=== PATIENT | female | born 1945 | race Caucasian/White ===

== ENCOUNTER 2020-09-10 06:53 | Outpatient (REF) | payer MEDICARE, OTHER, SELFPAY ==
[2020-09-10 08:12] LABS: Cholesterol 159 mg/dL; HDL Cholesterol 70 mg/dL; LDL Cholesterol Calculated 82 mg/dl; Triglycerides 35 mg/dL
[2020-09-12 10:59] LABS: Anion Gap 11 (12-20); Blood Urea Nitrogen 14 mg/dL (9-16); Carbon Dioxide 31 mmol/L (22-29); Chloride 96 mmol/L (96-108); Estimated Glomerular Filt Rate > 60; Glucose Random 103 mg/dL (60-115); Potassium 4.3 mmol/l (3.3-5.1); Sodium 134 mmol/L (135-145)
== END 2020-09-10 06:54 | disposition home or self-care (01) ==
LOC: HO.LAB 06:53
PROVIDERS: Referring Provider Internal Medicine Cardiovascular Disease; Visit Provider Internal Medicine
DX: E03.9 Hypothyroidism, unspecified (principal); E11.9 Type 2 diabetes mellitus without complications; I10 Essential (primary) hypertension
CPT/HCPCS: 80048; 80061; 84443

== ENCOUNTER 2020-09-21 07:42 | Outpatient (REF) | payer MEDICARE, OTHER, SELFPAY | END 2020-09-21 07:43 | disposition home or self-care (01) | LOC: HO.LAB 07:42 | PROVIDERS: PCP Internal Medicine; Visit Provider Internal Medicine | DX: Z20.828 Contact with and (suspected) exposure to other viral communicable diseases (principal) | CPT/HCPCS: C9803; U0003 ==

== ENCOUNTER 2021-02-19 07:31 | Outpatient (REF) | payer MEDICARE, OTHER, SELFPAY ==
[2021-02-19 09:24] LABS: Thyroid Stimulating Hormone 1.42 uIU/mL (0.32-4.0)
== END 2021-02-19 07:32 | disposition home or self-care (01) ==
LOC: HO.LAB 07:31
PROVIDERS: PCP Internal Medicine; Visit Provider Internal Medicine
DX: E03.9 Hypothyroidism, unspecified (principal)
CPT/HCPCS: 36415; 84443

== ENCOUNTER 2021-02-25 10:14 | Outpatient (REF) | payer MEDICARE, OTHER, SELFPAY ==
--- NOTE | ~2021-02-25 | XR_ITS ---
EXAMINATION: XR KNEE, RIGHT CLINICAL INFORMATION: Right knee pain COMPARISON: None TECHNIQUE: Four views of the right knee. FINDINGS: There is generalized osteopenia. No fracture, dislocation, destructive process. No periostitis. No suprapatellar effusion. There is joint narrowing greatest lateral knee joint compartment with associated borderline genu valgus and small marginal osteophytes lateral femoral condyle and lateral tibial plateau. There is also some mild narrowing medial knee joint compartment. No visible erosive change or chondrocalcinosis. XR/XR knee RT 4V IMPRESSION: 1. Narrowing lateral knee joint compartment with borderline genu valgus. Mild narrowing medial compartment. 2. Generalized osteopenia. No erosive change or visible chondrocalcinosis. 3. No fracture, destructive process, or effusion.
== END 2021-02-25 10:15 | disposition home or self-care (01) ==
LOC: HO.HMGCX 10:14
PROVIDERS: PCP Internal Medicine; Visit Provider Hospitalist
DX: M25.561 Pain in right knee (principal)
CPT/HCPCS: 73564

== ENCOUNTER 2021-09-21 10:58 | Outpatient (REF) | payer MEDICARE, OTHER, SELFPAY ==
--- NOTE | ~2021-09-21 | XR_ITS ---
EXAMINATION: RIGHT WRIST X-RAY CLINICAL INFORMATION: Pain COMPARISON: None TECHNIQUE: 4 views of the right wrist FINDINGS: Bone alignment is normal. No fracture or dislocation is seen. Joint spaces are normal. Soft tissues are normal. XR/XR wrist RT w scaphoid IMPRESSION: Normal exam.
--- NOTE | ~2021-09-21 | XR_ITS ---
EXAMINATION: XR KNEE, RIGHT CLINICAL INFORMATION: Pain post fall COMPARISON: Previous x-ray most recent February 2021 TECHNIQUE: Four views of the right knee. FINDINGS: There may be mild valgus angulation. Bone alignment is otherwise normal. No fracture or dislocation is seen. The bones are osteopenic. There is lateral femoral tibial joint space narrowing. There is no joint effusion. XR/XR knee RT 4V IMPRESSION: Osteopenia and mild degenerative changes.
== END 2021-09-21 10:59 | disposition home or self-care (01) ==
LOC: HO.HMGCX 10:58
PROVIDERS: PCP Internal Medicine; Visit Provider Physician Assistant
DX: M25.531 Pain in right wrist (principal); M25.561 Pain in right knee
CPT/HCPCS: 73110; 73564

== ENCOUNTER 2021-12-05 07:59 | Outpatient (REF) | payer MEDICARE, OTHER, SELFPAY ==
[2021-12-05 08:45] LABS: Alanine Aminotransferase 20 U/L (0-31); Albumin Level 4.3 g/dL (3.5-5.0); Alkaline Phosphatase 71 U/L (39-117); Anion Gap 11 (12-20); Aspartate Amino Transferase 26 U/L (5-31); Blood Urea Nitrogen 13 mg/dL (9-16); Calcium 9.8 mg/dL (8.4-10.2); Carbon Dioxide 30 mmol/L (22-29); Chloride 94 mmol/L (96-108); Cholesterol 185 mg/dL; Estimated Glomerular Filt Rate > 60; Glucose Fasting 107 mg/dL (60-99); HDL Cholesterol 74 mg/dL; LDL Cholesterol Calculated 99 mg/dl; Sodium 131 mmol/L (135-145); Total Protein 6.9 g/dL (6.5-8.0); Triglycerides 61 mg/dL
[2021-12-05 09:15] LABS: Free T4 (Free Thyroxine) 1.32 ng/dL (0.71-1.85); Thyroid Stimulating Hormone 3.95 uIU/mL (0.32-4.0)
== END 2021-12-05 08:00 | disposition home or self-care (01) ==
LOC: HO.LAB 07:59
PROVIDERS: PCP Internal Medicine; Visit Provider Nurse Practitioner Family
DX: Z13.1 Encounter for screening for diabetes mellitus (principal); E78.5 Hyperlipidemia, unspecified; E03.9 Hypothyroidism, unspecified
CPT/HCPCS: 36415; 80053; 80061; 84439; 84443

== ENCOUNTER 2022-05-27 06:55 | Outpatient (REF) | payer MEDICARE, OTHER, SELFPAY ==
[2022-05-27 07:57] LABS: Alanine Aminotransferase 19 U/L (0-31); Albumin Level 4.1 g/dL (3.5-5.0); Alkaline Phosphatase 72 U/L (39-117); Anion Gap 10 (12-20); Aspartate Amino Transferase 25 U/L (5-31); Bilirubin Total 0.7 mg/dL (0.0-1.0); Blood Urea Nitrogen 15 mg/dL (9-16); Calcium 9.1 mg/dL (8.4-10.2); Carbon Dioxide 31 mmol/L (22-29); Chloride 100 mmol/L (96-108); Estimated Glomerular Filt Rate > 60; Glucose Fasting 111 mg/dL (60-99); Potassium 4.3 mmol/L (3.3-5.1); Sodium 137 mmol/L (135-145); Total Protein 6.5 g/dL (6.5-8.0)
== END 2022-05-27 06:56 | disposition home or self-care (01) ==
LOC: HO.LAB 06:55
PROVIDERS: PCP Internal Medicine; Visit Provider Internal Medicine
DX: Z00.00 Encounter for general adult medical examination without abnormal findings (principal)
CPT/HCPCS: 36415; 80053; 84443

== ENCOUNTER 2023-01-12 07:48 | Outpatient (REF) | payer MEDICARE, OTHER, SELFPAY ==
[2023-01-12 08:07] LABS: MANUAL DIFF FLAG NO
[2023-01-12 08:26] LABS: Basophils Absolute Auto 0.1 X10*3/uL (0.0-0.2); Basophils Percent Auto 0.8 % (0-2); Eosinophils Absolute Auto 0.1 X10*3/uL (0.0-0.4); Eosinophils Percent Auto 1.1 % (0-4); Hematocrit 35.5 % (37.0-47.0); Hemoglobin 12.1 g/dl (12.0-16.0); Imm Gran Abs Auto 0.03 X10*3/uL (0.00-0.03); Imm Gran Pct Auto 0.4 % (0.0-0.4); Lymphocytes Absolute Auto 3.3 X10*3/uL (1.2-4.9); Lymphocytes Percent Auto 38.8 % (20-40); Mean Corpuscular HGB Conc 34.1 g/dl (31.0-35.0); Mean Corpuscular Hemoglobin 30.5 pg (27.0-33.0); Mean Corpuscular Volume 89.4 fL (80.0-98.0); Mean Platelet Volume 9.7 fL (9.4-12.3); Monocytes Absolute Auto 0.7 X10*3/uL (0.1-1.2); Monocytes Percent Auto 8.6 % (2-11); Neutrophils Absolute Auto 4.2 x10*3/uL (2.0-8.3); Neutrophils Percent Auto 50.3 % (45-73); Platelet Count 226 X10*3/uL (160-400); Red Blood Count 3.97 X10*6/uL (4.20-5.50); Red Cell Distribution Width 12.2 % (11.0-16.0); White Blood Count 8.4 X10*3/uL (4.8-10.8)
[2023-01-12 09:05] LABS: Alanine Aminotransferase 15 U/L (0-31); Albumin Level 4.1 g/dL (3.5-5.0); Alkaline Phosphatase 71 U/L (39-117); Anion Gap 10 (12-20); Aspartate Amino Transferase 24 U/L (5-31); Bilirubin Total 1.3 mg/dL (0.0-1.0); Blood Urea Nitrogen 11 mg/dL (9-16); Calcium 9.4 mg/dL (8.4-10.2); Carbon Dioxide 32 mmol/L (22-29); Chloride 94 mmol/L (96-108); Cholesterol 170 mg/dL; Estimated Glomerular Filt Rate > 60; Glucose Fasting 94 mg/dL (60-99); HDL Cholesterol 73 mg/dL; LDL Cholesterol Calculated 86 mg/dl; Sodium 132 mmol/L (135-145); Total Protein 6.3 g/dL (6.5-8.0); Triglycerides 56 mg/dL
[2023-01-12 09:21] LABS: Thyroid Stimulating Hormone 3.78 uIU/mL (0.32-4.0)
== END 2023-01-12 07:49 | disposition home or self-care (01) ==
LOC: HO.LAB 07:48
PROVIDERS: PCP Internal Medicine; Visit Provider Internal Medicine
DX: N28.9 Disorder of kidney and ureter, unspecified (principal); E03.9 Hypothyroidism, unspecified; D64.9 Anemia, unspecified; E78.5 Hyperlipidemia, unspecified
CPT/HCPCS: 36415; 80053; 80061; 84443; 85025

== ENCOUNTER 2023-05-05 12:04 | Outpatient (REF) | payer MEDICARE, OTHER, SELFPAY | END 2023-05-05 12:05 | disposition home or self-care (01) | LOC: HO.XRAY 12:04 | PROVIDERS: PCP Internal Medicine; Visit Provider Internal Medicine | DX: M25.512 Pain in left shoulder (principal) | CPT/HCPCS: 73030 ==

== ENCOUNTER 2023-05-11 09:00 | Outpatient (RCR) | payer MEDICARE, OTHER, SELFPAY ==
[2023-04-08 10:18] VITALS: BP 223/108; PULSE 66
--- NOTE | 2023-04-08 13:32 | MHC.PT.EP ---
[facility] [place] Office [place] Office [place] Office [address] Coreen Mendoza [address] [phone] F: [phone] F: [phone] F: [phone] F: [phone] Physical Therapy Plan of Care Date of Evaluation: Date of Surgery: Diagnosis: Muscle weakness (generalized), Bilateral Leg Weakness Assessment: Beverly is a 78 year old women referred to PT for generalized LE weakness with hx significant for post-polio, HTN, A-fib, Grave's disease, and CLBP. Pt impairments include gross RLE weakness and poor muscle contraction due to post-polio, poor core stabilization, impaired gait, balance and LBP. Functional limitations include decreased endurance, decreased tolerance to physical activities including gardening, and decreased walking distance. She lives alone ans is independent with all ADLs however is noticing increased difficulty to complete them. Pt requires skilled PT to address aforementioned physical/functional impairments including pt education, energy conservation techniques, and HEP. Frequency and Duration: The patient will be seen 2x per week for 6 weeks Short Term Goals: 1. Pt will demonstrate initiation of HEP in 2 weeks. 2. 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 Pt will demonstrate an increase in muscle strength by 1 grade which will enable her to perform gardening for 5-6 hours and other chores without pain in 5 weeks. 2. Pt will be independent with HEP for symptom management and maintenance following d/c in 6 weeks. Treatment Plan: Modalities to reduce pain, spasms and effusion. Manual therapy to restore motion and function. Therapeutic exercise to improve strength and flexibility. Neuromuscular re-education for posture and balance. Therapeutic activities to return to functional activities of daily living. Electronically signed by: Leticia Jacobs PT DPT Please sign and return to therapist. Thank you for your referral.
--- NOTE | 2023-05-11 10:13 | MHC.PT.DC ---
[facility] [place] Office [place] Office [place] Office [address] Coreen Mendoza [address] [phone] F: [phone] F: [phone] F: [phone] F: [phone] Physical Therapy Discharge Report Diagnosis: Muscle weakness (generalized), Bilateral Leg Weakness Date of Surgery: Date of Evaluation: 04/08/23 Date of Discharge: 05/11/23 Treatments to Date: 7 Cancellations to Date: 0 No Shows to Date: Discharge Status: Independent with HEP Discharge Summary: Beverly has completed 7 PT visits and is independent with HEP. She has not noticed much improvement with PT therefore plan of care not extended further. Beverly was in agreement with the plan. She was advised however to continue with HEP to maintain her strength and ROM. Electronically signed by: Leticia Jacobs PT DPT Please sign and return to therapist. Thank you for your referral.
== END 2023-05-11 10:14 | disposition home or self-care (01) ==
LOC: HO.PT 09:00
PROVIDERS: PCP Internal Medicine; Visit Provider Internal Medicine
DX: M62.81 Muscle weakness (generalized) (principal)
CPT/HCPCS: 97110; 97112; 97161; 97530

== ENCOUNTER 2023-06-30 10:51 | Outpatient (AMB) | payer MEDICARE, SELFPAY ==
--- NOTE | 2023-06-30 10:57 | A.OFFVIS_ITS ---
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 The patient states that she fell directly onto her left shoulder approximately 1 year ago in her sister's bathroom. Since that time she has gotten progressively worse in spite of continued non operative treatments. She states that she has difficulty lifting her left hand above shoulder height. She has done physical therapy exercises which aggravated her pain. She has also tried Tylenol and anti-inflammatory medicines which gave her minimal relief. The patient has had cortisone injections in the past which gave her only temporary relief. Allergies No Known Allergies Allergy (Verified 06/30/23 11:00) Medication List - Last Reconciled 06/30/23 by Johny Hayes MD acebutolol 200 mg PO BID aspirin (Adult Aspirin Regimen) 81 mg PO DAILY atorvastatin 5 mg (1/2 x 10 mg) PO DAILY cholecalciferol (vitamin D3) 25 mcg PO DAILY hydrochlorothiazide 25 mg (2 x 12.5 mg) PO DAILY latanoprost 0.005% 1 drp ophthalmic (eye) BEDTIME levothyroxine 62.5 mcg (2.5 x 25 mcg) PO DAILY lisinopril 40 mg PO DAILY oxycodone 5 mg PO Q8H PRN tramadol 50 mg PO Q6H PRN PFSH Medical History Atrial fibrillation Right knee pain Somatic dysfunction of right sacroiliac joint Surgical History H/O total hysterectomy History of colonoscopy History of surgery Family History Father CAD (coronary artery disease) Mother CAD (coronary artery disease) Social History Housing: House Alcohol intake: current Alcohol intake frequency: 0-2 drinks per day Alcohol type: beer and wine Patient Tobacco Use Status: Never used Tobacco e-Cigarette/Vaping Use: Never Used Second Hand Smoke Exposure: No service: No Current occupational status: retired Cognitive needs: No Hearing needs: No Vision needs: No Physical Exam Vital Signs: BMI result Body Mass Index 20.8 Const Other: Well-nourished well-developed very friendly female awake alert and oriented x3 in no acute distress Extrem Other: Bilateral upper extremity examination shows good capillary refill, no skin lesions noted, normal sensation light touch Left shoulder examination shows decreased active range of motion but full passive range of motion when compared to her right shoulder, 4/5 strength with supraspinatus testing, positive impingement signs, tenderness over her acromioclavicular joint, no instability Results Reviewed Results Reviewed: X-rays of the patient's left shoulder show severe acromioclavicular joint narrowing, type 3 acromion, no acute bony abnormalities Assessment & Plan Assessment & Plan (1) Left shoulder pain: Code(s): M25.512 - Pain in left shoulder Plan Ms. Paulino presents with progressively worsening left shoulder pain and weakness most likely due to a full-thickness rotator cuff tear. Thus, I will send the patient for MRI of her left shoulder for further evaluation of her rotator cuff tendons. If she does have a full-thickness tear I will recommend surgical repair to optimize her future functional level. She will continue with her range of motion exercises in the meantime to prevent stiffness. I will see her back once the MRI is completed to discuss the findings and treatment options. Feel free to call me at any time should questions regarding her orthopedic management arise. Thank you very much for asking me to see this very friendly patient. I spent 22 minutes in reviewing the patient's records and imaging studies, seeing the patient and documenting in the medical record. Orders: Orders 2 MR shoulder LT wo con Today M75.100 - Unspecified rotator cuff tear or rupture of unspecified shoulder, not specified as traumatic Coding Level of Care Code New Pt Level 2 (61718) Diagnoses Left shoulder pain M25.512
[2023-06-30 11:00] VITALS: BMI 20.8
== END 2023-06-30 11:39 | disposition home or self-care (01) ==
PROVIDERS: PCP Internal Medicine; Visit Provider Orthopaedic Surgery
DX: M25.512 Pain in left shoulder (principal)
CPT/HCPCS: 99202

== ENCOUNTER → 2023-06-30 10:51 | Outpatient (BNVA) | payer MEDICARE, OTHER, SELFPAY | PROVIDERS: PCP Internal Medicine; Visit Provider Orthopaedic Surgery | DX: M25.512 Pain in left shoulder (principal) | CPT/HCPCS: 99202 ==

== ENCOUNTER 2023-07-15 10:46 | Outpatient (AMB) | payer MEDICARE, SELFPAY ==
[2023-07-15 10:48] VITALS: BP 178/80; PULSE 70; O2SAT 98; BMI 20.8
--- NOTE | 2023-07-15 10:48 | MHC.PC.OV ---
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 Lace Tearing: Not Required per policy Accompanied by: Self / Same As Patient Allergies No Known Allergies Allergy (Verified 07/15/23 10:49) Tobacco use date assessed: 05/05/23 Fall risk assessment: 1 Fall in past year Last assessed Fall Risk: 07/15/23 Dental Screening Dental Screen Date: 07/15/23 Did you have a dental visit in the last 12 months?: Yes Did you have a dental problem in the last 6 months where you did not have access to dental care?: No Was dental information given to patient?: Patient has dentist HPI Back Injury HPI Details injured lower back lifting 4 days ago [facility] Medical History Atrial fibrillation Right knee pain Somatic dysfunction of right sacroiliac joint Surgical History H/O total hysterectomy History of colonoscopy History of surgery Family History Father CAD (coronary artery disease) Mother CAD (coronary artery disease) Social History Housing: House Alcohol intake: current Alcohol intake frequency: 0-2 drinks per day Alcohol type: beer and wine Patient Tobacco Use Status: Never used Tobacco e-Cigarette/Vaping Use: Never Used Second Hand Smoke Exposure: No service: No Current occupational status: retired Cognitive needs: No Hearing needs: Yes Vision needs: Yes Questionnaire PHQ-9 Over the last 2 weeks, how often have you been bothered by any of the following problems? 2. Feeling down, depressed, or hopeless: not at all 3. Trouble falling or staying asleep, or sleeping too much: not at all 4. Feeling tired or having little energy: not at all 5. Poor appetite or overeating: not at all 6. Feeling bad about yourself - or that you are a failure or have let yourself or your family down: not at all 7. Trouble concentrating on things, such as reading the newspaper or watching television: not at all 8. Moving or speaking so slowly that other people could have noticed. Or the opposite - being so fidgety or restless that you have been moving around a lot more than usual: not at all 9. Thoughts that you would be better off or of hurting yourself in some way: not at all Depression Screening Interpretation: Negative Source: Developed by Drs. Sagar Haile, Pricilla Hatfield, Silviano Bojorquez and colleagues, with an educational ena from [employer]. Thrive Questionnaire Date Thrive assessed: 01/09/23 AUDIT C Alcohol Use Questionnaire (AUDIT-C) 1. How often do you have a drink containing alcohol?: 4 or more times a week 2. How many drinks containing alcohol do you have on a typical day when you are drinking?: 1 or 2 3. How often do you have six or more drinks on one occasion?: Never Total Score: 4 Score Reviewed/Action Taken: Yes VENANCIO-7 AMB Questionnaire VENANCIO-7 Date VENANCIO - 7 assessed: 01/09/23 Source: Developed by Drs. Sagar Haile, Pricilla Hatfield, Silviano Bojorquez and colleagues, with an educational ena from [employer]. Review of Systems Const Denies chills, Denies headache(s) and Denies weight loss ENT Denies headache(s) Card Denies chest pain, Denies syncope, Denies irregular heart rhythm and Denies dyspnea Resp Denies chest congestion, Denies cough and Denies dyspnea GI Denies abdominal pain, Denies change in stool character, Denies nausea and Denies vomiting Musc Denies deformity and Denies joint swelling Neuro Denies syncope and Denies headache(s) Physical exam (Primary Care) Vital Signs: Last Vital Signs Pulse 70 07/15/23 10:48 BP 178/80 H 07/15/23 10:48 Pulse Ox 98 07/15/23 10:48 Oxygen Delivery Method Room Air 07/15/23 10:48 BMI result Body Mass Index 20.8 Tobacco/Smoking Status: Tobacco use Status Tobacco use date assessed 05/05/23 07/15/23 10:55 Patient Tobacco Use Status Never used Tobacco 07/15/23 10:55 e-Cigarette/Vaping Use Never Used 07/15/23 10:55 Depression Screening Interpretation: Negative Thrive Assessment: Date of Thrive Assessment Date Thrive assessed 01/09/23 07/15/23 10:55 Const General: cooperative and healthy appearing Resp Effort & Inspection: normal respiratory effort Auscultation: clear to auscultation bilaterally Cardio Jugular venous distension: no JVD Palpation: normal PMI Rate: regular rate Rhythm: regular rhythm Neuro Other: normal Extrem General: Yes normal to inspection and Yes no pedal edema Assessment and Plan Assessment & Plan (1) Low back pain: Code(s): M54.50 - Low back pain, unspecified Plan: xr Orders: Orders XR lumbar spine 2-3V Today M54.9 - Dorsalgia, unspecified Comprehensive [place]. Panel Fast Today N28.9 - Disorder of kidney and ureter, unspecified Lipid Panel Today E78.5 - Hyperlipidemia, unspecified Thyroid Stimulating Hormone Today E03.9 - Hypothyroidism, unspecified Complete Blood Count Auto Diff Today D64.9 - Anemia, unspecified Coding Level of Care Code Est Pt Level 3 (44748) Diagnoses Low back pain M54.50
== END 2023-07-15 11:11 | disposition home or self-care (01) ==
PROVIDERS: PCP Internal Medicine; Visit Provider Internal Medicine
DX: M54.50 Low back pain, unspecified (principal)
CPT/HCPCS: 99213

== ENCOUNTER 2023-07-15 11:20 | Outpatient (REF) | payer MEDICARE, OTHER, SELFPAY ==
--- NOTE | ~2023-07-15 | XR_ITS ---
EXAMINATION: XR LUMBOSACRAL SPINE CLINICAL INFORMATION: Dorsalgia COMPARISON: January 2014. TECHNIQUE: Three views of the lumbosacral spine. FINDINGS: There is a mild compression deformity at L1, new since the examination of 2013, though this is of uncertain age. There are small endplate spondylitic changes. Degenerative disc space narrowing unchanged at L5-S1 but increased at L2-3 since the prior evaluation. There is some straightening of the normal lordosis which can be seen with spasm. Multilevel facet arthrosis noted. XR/XR lumbar spine 2-3V IMPRESSION: 1. Mild compression deformity at L1, new since the examination of 2013, though of uncertain age. 2. Degenerative disc space narrowing L5-S1 appears stable, with similar changes at L2-3 increased since the previous evaluation. 3. Lumbar spasm. 4. Facet arthrosis.
== END 2023-07-15 11:21 | disposition home or self-care (01) ==
LOC: HO.XRAY 11:20
PROVIDERS: PCP Internal Medicine; Visit Provider Internal Medicine
DX: M54.9 Dorsalgia, unspecified (principal)
CPT/HCPCS: 72100

== ENCOUNTER 2023-07-20 14:07 | Outpatient (AMB) | payer MEDICARE, SELFPAY ==
[2023-07-20 14:08] VITALS: PULSE 68; O2SAT 99; BMI 21.2
--- NOTE | 2023-07-20 14:08 | MHC.PC.OV ---
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 Accompanied by: Self / Same As Patient Allergies No Known Allergies Allergy (Verified 07/20/23 14:09) Medication List - Last Reconciled 07/21/23 by Paco Jordan MD acebutolol 200 mg PO BID aspirin (Adult Aspirin Regimen) 81 mg PO DAILY atorvastatin 5 mg (1/2 x 10 mg) PO DAILY cholecalciferol (vitamin D3) 25 mcg PO DAILY hydrochlorothiazide 25 mg (2 x 12.5 mg) PO DAILY latanoprost 0.005% 1 drp ophthalmic (eye) BEDTIME levothyroxine 62.5 mcg (2.5 x 25 mcg) PO DAILY lisinopril 40 mg PO DAILY oxycodone 5 mg PO Q8H PRN tramadol 50 mg PO Q6H PRN Tobacco use date assessed: 05/05/23 Fall risk assessment: No Falls in past year Last assessed Fall Risk: 07/20/23 Dental Screening Dental Screen Date: 07/20/23 Did you have a dental visit in the last 12 months?: Yes Did you have a dental problem in the last 6 months where you did not have access to dental care?: No Was dental information given to patient?: Patient has dentist HPI Back pain HPI Details has a L1 compression frcture with pain PFSH Medical History Atrial fibrillation Somatic dysfunction of right sacroiliac joint Right knee pain Surgical History History of colonoscopy History of surgery H/O total hysterectomy Family History Father CAD (coronary artery disease) Mother CAD (coronary artery disease) Social History Housing: House Alcohol intake: current Alcohol intake frequency: 0-2 drinks per day Alcohol type: beer and wine Patient Tobacco Use Status: Never used Tobacco e-Cigarette/Vaping Use: Never Used Second Hand Smoke Exposure: No service: No Current occupational status: retired Cognitive needs: No Hearing needs: Yes Vision needs: Yes Questionnaire PHQ-9 Over the last 2 weeks, how often have you been bothered by any of the following problems? 2. Feeling down, depressed, or hopeless: not at all 3. Trouble falling or staying asleep, or sleeping too much: not at all 4. Feeling tired or having little energy: not at all 5. Poor appetite or overeating: not at all 6. Feeling bad about yourself - or that you are a failure or have let yourself or your family down: not at all 7. Trouble concentrating on things, such as reading the newspaper or watching television: not at all 8. Moving or speaking so slowly that other people could have noticed. Or the opposite - being so fidgety or restless that you have been moving around a lot more than usual: not at all 9. Thoughts that you would be better off or of hurting yourself in some way: not at all Depression Screening Interpretation: Negative Source: Developed by Drs. Sagar Haile, Pricilla Hatfield, Silviano Bojorquez and colleagues, with an educational ena from [employer]. Thrive Questionnaire Date Thrive assessed: 01/09/23 AUDIT C Alcohol Use Questionnaire (AUDIT-C) 1. How often do you have a drink containing alcohol?: 4 or more times a week 2. How many drinks containing alcohol do you have on a typical day when you are drinking?: 1 or 2 3. How often do you have six or more drinks on one occasion?: Never Total Score: 4 Score Reviewed/Action Taken: Yes VENANCIO-7 AMB Questionnaire VENANCIO-7 Date VENANCIO - 7 assessed: 01/09/23 Source: Developed by Drs. Sagar Haile, Pricilla Hatfield, Silviano Bojorquez and colleagues, with an educational ena from [employer]. Review of Systems Const Denies chills, Denies headache(s) and Denies weight loss ENT Denies headache(s) Card Denies chest pain, Denies syncope, Denies irregular heart rhythm and Denies dyspnea Resp Denies chest congestion, Denies cough and Denies dyspnea GI Denies abdominal pain, Denies change in stool character, Denies nausea and Denies vomiting Musc Denies deformity and Denies joint swelling Neuro Denies syncope and Denies headache(s) Physical exam (Primary Care) Vital Signs: Last Vital Signs Pulse 68 07/20/23 14:08 Pulse Ox 99 07/20/23 14:08 Oxygen Delivery Method Room Air 07/20/23 14:08 BMI result Body Mass Index 21.2 Tobacco/Smoking Status: Tobacco use Status Tobacco use date assessed 05/05/23 07/20/23 14:12 Patient Tobacco Use Status Never used Tobacco 07/20/23 14:12 e-Cigarette/Vaping Use Never Used 07/20/23 14:12 Depression Screening Interpretation: Negative Thrive Assessment: Date of Thrive Assessment Date Thrive assessed 01/09/23 07/20/23 14:12 Const General: cooperative, comfortable, no acute distress and alert Neck Neck: Yes no lymphadenopathy Thyroid: Thyroid normal Resp Effort & Inspection: normal respiratory effort Auscultation: clear to auscultation bilaterally Percussion: percussion normal Cardio Jugular venous distension: no JVD Palpation: normal PMI Rate: regular rate Rhythm: regular rhythm Heart sounds: S1 normal heart sound present and S2 normal heart sound present GI Inspection: Yes normal to inspection Palpation (GI): No hepatosplenomegaly present Skin General skin exam: no rashes or lesions noted Extrem General: Yes no clubbing, cyanosis or edema Assessment and Plan Assessment & Plan (1) Lumbar compression fracture: Code(s): S32.000A - Wedge compression fracture of unspecified lumbar vertebra, initial encounter for closed fracture Plan: ref spine surgeon; bone dens Orders: Referrals Neuro Spine Referral S32.000A - Wedge compression fracture of unspecified lumbar vertebra, initial encounter for closed fracture Coding Level of Care Code Est Pt Level 3 (43681) Diagnoses Lumbar compression fracture S32.000A
== END 2023-07-20 14:25 | disposition home or self-care (01) ==
PROVIDERS: PCP Internal Medicine; Visit Provider Internal Medicine
DX: S32.000A Wedge compression fracture of unspecified lumbar vertebra, initial encounter for closed fracture (principal)
CPT/HCPCS: 99213

== ENCOUNTER 2023-07-21 08:06 | Outpatient (REF) | payer MEDICARE, OTHER, SELFPAY ==
[2023-07-21 08:21] LABS: MANUAL DIFF FLAG NO
[2023-07-21 09:00] LABS: Basophils Absolute Auto 0.1 X10*3/uL (0.0-0.2); Basophils Percent Auto 1.1 % (0-2); Eosinophils Absolute Auto 0.1 X10*3/uL (0.0-0.4); Eosinophils Percent Auto 1.4 % (0-4); Hematocrit 34.8 % (37.0-47.0); Hemoglobin 11.8 g/dl (12.0-16.0); Imm Gran Abs Auto 0.02 X10*3/uL (0.00-0.03); Imm Gran Pct Auto 0.2 % (0.0-0.4); Lymphocytes Percent Auto 36.1 % (20-40); Mean Corpuscular HGB Conc 33.9 g/dl (31.0-35.0); Mean Corpuscular Hemoglobin 29.9 pg (27.0-33.0); Mean Corpuscular Volume 88.3 fL (80.0-98.0); Mean Platelet Volume 9.4 fL (9.4-12.3); Monocytes Absolute Auto 0.8 X10*3/uL (0.1-1.2); Monocytes Percent Auto 9.7 % (2-11); Neutrophils Absolute Auto 4.3 x10*3/uL (2.0-8.3); Neutrophils Percent Auto 51.5 % (45-73); Platelet Count 238 X10*3/uL (160-400); Red Blood Count 3.94 X10*6/uL (4.20-5.50); Red Cell Distribution Width 12.5 % (11.0-16.0); White Blood Count 8.3 X10*3/uL (4.8-10.8)
[2023-07-21 09:35] LABS: Alanine Aminotransferase 11 U/L (0-31); Albumin Level 3.9 g/dL (3.5-5.0); Alkaline Phosphatase 81 U/L (39-117); Anion Gap 12 (12-20); Aspartate Amino Transferase 21 U/L (5-31); Bilirubin Total 0.9 mg/dL (0.0-1.0); Blood Urea Nitrogen 12 mg/dL (9-16); Calcium 9.1 mg/dL (8.4-10.2); Carbon Dioxide 30 mmol/L (22-29); Chloride 94 mmol/L (96-108); Cholesterol 159 mg/dL (<200); Estimated Glomerular Filt Rate > 60; Glucose Fasting 98 mg/dL (60-99); HDL Cholesterol 64 mg/dL (>40); LDL Cholesterol Calculated 84 mg/dL (<100); Potassium 3.7 mmol/L (3.3-5.1); Sodium 132 mmol/L (135-145); Total Protein 6.6 g/dL (6.5-8.0); Triglycerides 58 mg/dL (<150)
[2023-07-21 09:51] LABS: Thyroid Stimulating Hormone 10.29 uIU/mL (0.32-4.0)
== END 2023-07-21 08:07 | disposition home or self-care (01) ==
LOC: HO.LAB 08:06
PROVIDERS: PCP Internal Medicine; Visit Provider Internal Medicine
DX: E03.9 Hypothyroidism, unspecified (principal); N28.9 Disorder of kidney and ureter, unspecified; E78.5 Hyperlipidemia, unspecified; D64.9 Anemia, unspecified
CPT/HCPCS: 36415; 80053; 80061; 84443; 85025

== ENCOUNTER 2023-08-04 10:33 | Outpatient (REF) | payer MEDICARE, OTHER, SELFPAY ==
--- NOTE | ~2023-08-04 | MR_ITS ---
EXAMINATION: MR LUMBAR SPINE WITHOUT CONTRAST CLINICAL INFORMATION: Wedge compression fracture. Further evaluate. COMPARISON: X-ray lumbar spine dated 07/15/2023. MR lumbar spine from 05/26/2015. TECHNIQUE: Multiplanar, multisequence imaging was obtained. FINDINGS: VERTEBRAL BODIES AND PARASPINAL STRUCTURES: There is a subacute superior endplate compression fracture at the L1 level demonstrating a 30% loss of vertebral body height centrally. Riyo-ln-tqriwkgv marrow edema present across the superior half of the vertebral body with mild paraspinal soft tissue inflammatory changes as well. No significant osseous retropulsion evident. No additional compression fractures are seen. Mild anterolisthesis at the L2-L3 level is slightly worsened with moderate disc space narrowing and anterior endplate spurring. Bulky anterior endplate spurring noted in the mid lumbar spine with a mild leftward lumbar spinal curvature. The paraspinal soft tissues are normal. Bilateral renal cysts noted, for which no further imaging followup is indicated. Extensive sigmoid colonic diverticulosis partially visualized. CONUS MEDULLARIS AND CAUDA EQUINE: The distal cord, conus tip, and cauda equina nerve roots are normal. SPINAL LEVELS: T12-L1: Mild disc bulge and facet arthropathy very mildly encroaching upon the central canal. Patent foramina. L1-L2: Worsened broad-based left posterolateral disc protrusion with dvcuhdxq-uv-jgqotn foraminal encroachment and new mass effect upon the exiting left L1 nerve root. Moderate facet arthropathy and thickening of the ligamentum flavum progressed with mild central canal stenosis. Mild right foraminal narrowing due to facet spurring. L2-L3: Anterolisthesis has worsened with progressed severe facet arthropathy. Unroofed disc bulge also present. Findings result in worsened severe central canal stenosis and thecal sac compression. Additional mass effect upon the L3 nerve roots in the subarticular zones. Moderate left foraminal narrowing again evident. Worsened right foraminal narrowing due to osseous spurring and posterolateral bulging disc with mass effect upon the right L2 nerve root. L3-L4: Worsened diffuse disc bulge and klqzztgl-er-qtpybb facet arthropathy with progressed moderate central canal stenosis and thecal sac distortion. Broad-based right posterolateral disc protrusion has worsened with further significant foraminal encroachment and abutment of the exiting right L3 nerve root. Slightly worsened moderate left foraminal narrowing. L4-L5: Diffuse disc bulge and progressed severe facet arthropathy with thickening of ligamentum flavum resulting in severe central canal stenosis and thecal sac compression. Mass effect upon the left L5 nerve root in the narrowed lateral recess. Moderate bilateral foraminal narrowing with bulging disc abutting the exiting L4 nerve roots. L5-S1: Broad-based central disc protrusion has worsened with distortion of the ventral thecal sac and increased mass effect upon the S1 nerve roots in the lateral recesses. Hypertrophic facet arthropathy and moderate central canal stenosis. Worsened severe left foraminal narrowing due to bulging disc and osseous spurring impressing upon the exiting left L5 nerve root. MR/MR lumbar spine wo con IMPRESSION: 1. Subacute superior endplate compression fracture at the L1 level with a 30% loss of vertebral body height centrally. No significant osseous retropulsion. Mild paraspinal soft tissue inflammatory changes. 2. Worsened multilevel lumbar spondylosis with progressed severe central canal stenosis at the L2-L3 and L4-L5 levels. Moderate central canal stenosis at the L3-L4 level. Worsened broad-based left posterolateral disc protrusion at L1-L2 with significant left foraminal encroachment and mass effect upon the left L1 nerve root. 3. Worsened broad-based right posterolateral disc protrusion at the L3-L4 level with further significant foraminal encroachment and abutment of the right L3 nerve root. 4. Worsened broad-based central disc protrusion at L5-S1 with increased mass effect upon both S1 nerve roots in the lateral recesses. Moderate central canal stenosis. Worsened severe left foraminal narrowing with mass effect upon the left L5 nerve root. 5. Sigmoid colonic diverticulosis.
== END 2023-08-04 10:34 | disposition home or self-care (01) ==
LOC: HO.MRI 10:33
PROVIDERS: PCP Internal Medicine; Visit Provider Internal Medicine
DX: S32.000A Wedge compression fracture of unspecified lumbar vertebra, initial encounter for closed fracture (principal)
CPT/HCPCS: 72148

== ENCOUNTER 2023-08-25 12:40 | Outpatient (AMB) | payer MEDICARE, SELFPAY ==
--- NOTE | 2023-08-25 13:13 | HO.SPINEOV ---
Intake Intake Visit Reasons: Wedge compression fracture Intake Note: Ms. Paulino is here today due to a compression fx. MRI done @ [facility]. Design Engineering Specialist Required: No Allergies No Known Allergies Allergy (Verified 07/20/23 14:09) Assessment & Plan Assessment & Plan (1) Lumbar compression fracture: Code(s): S32.000A - Wedge compression fracture of unspecified lumbar vertebra, initial encounter for closed fracture Plan Dear colleague Thank you for referring Beverly Paulino to the office today with a chief complaint of resolving back pain. HPI: This 78-year-old female developed an acute compression fracture on July 12, 2023. She was moving a couch and felt a sudden punch in the lower back followed by severe pain across the lumbar region. A standing x-ray showed a mild L1 compression fracture confirmed with an MRI of the lumbar spine. Fortunately, the symptoms have mostly resolved as expected. No numbness or new weakness. She does have residual weakness from polio. She was diagnosed with osteopenia in the . PMH: Polio, multiple orthopedic procedures, hysterectomy, osteopenia. Medications: As a brittle, lisinopril, aspirin, Xalatan Allergies: NKDA Social history: Nonsmoker Physical Exam: Pleasant female. She is able to come out of a chair without difficulties. No pain on axial loading. She walks with a limp due to right leg weakness. Radiological Studies: MRI done at [facility] shows an L1 compression fracture with less than 30% height loss. A standing x-ray shows again the L1 compression fracture with no deformity. Impression/Plan: This 78-year-old female developed an acute L1 compression fracture that displays routine healing. No further treatment is required. Thank you for allowing me to participate in your patients care. total time spent was 40 minutes in counseling ,coordination of plan, personal review of imaging, surgical decision making and subsequent plan Rick Vitale MD, PhD Spine Fellowship Trained Neurosurgeon Director, [facility] Coding Level of Care Code New Pt Level 3 (48303) Diagnoses Lumbar compression fracture S32.000A
== END 2023-08-25 13:33 | disposition home or self-care (01) ==
PROVIDERS: PCP Internal Medicine; Referring Provider Internal Medicine; Visit Provider Neurological Surgery
DX: S32.000A Wedge compression fracture of unspecified lumbar vertebra, initial encounter for closed fracture (principal)
CPT/HCPCS: 99203

== ENCOUNTER → 2023-08-25 12:40 | Outpatient (BNVA) | payer MEDICARE, OTHER, SELFPAY | PROVIDERS: PCP Internal Medicine; Referring Provider Internal Medicine; Visit Provider Neurological Surgery ==

== ENCOUNTER 2023-09-09 10:08 | Outpatient (REF) | payer MEDICARE, SELFPAY ==
--- NOTE | ~2023-09-09 | MM_ITS ---
EXAMINATION: BONE DENSITOMETRY CLINICAL INDICATION: Osteopenia. COMPARISON: This is the patient's baseline examination. TECHNIQUE: Using a Lookout DXA System (software version: 13.1) manufactured by [employer], dual-energy x-ray absorptiometry was performed of the lumbar spine and left hip. The images are of good technical quality. Summary results are attached. FINDINGS: LEFT FEMUR, NECK: BMD 0.597 g/cm2, Z-score -0.8, T-score -3.2, osteoporosis. LEFT FEMUR, TOTAL: BMD 0.620 g/cm2, Z-score -0.9, T-score -3.1, osteoporosis. AP SPINE L1-L4: BMD 1.006 g/cm2, Z-score 0.9, T-score -1.4, osteopenia. IDENTIFIED RISK FACTORS: Early menopause, recurrent falls, secondary osteoporosis, thiazide, history of fracture (adult). HISTORY OF FRACTURE: Spine, other. MEDICATIONS: Vitamin D. MM/XR DEXA axial skeleton IMPRESSION: 1. DIAGNOSIS: Severe osteoporosis based on the lowest T-score value of -3.2 in the femur neck and history of fracture of spine applying World Health Organization criteria. 2. 10-YEAR FRACTURE RISK PREDICTION, FRAX: According to the guidelines, FRAX calculation should only be performed on patients in the osteopenia bone density category. Therefore, FRAX was not performed on this patient. 3. Treatment Recommendations: NOF guidelines recommend consideration for treatment in postmenopausal women and men age 50 and older presenting with the following: -A hip or vertebral (clinical or morphometric) fracture. -T-score less than or equal to -2.5 at the femoral neck or spine after appropriate evaluation to exclude secondary causes. -Low bone mass at the hip or spine and a 10-year fracture probability by FRAX of greater than or equal to 3% for hip fracture or greater than or equal to 20% for major osteoporotic fracture based on the [place] adapted WHO algorithm. 4. Other Recommendations: All treatment decisions require clinical judgment and consideration of individual patient factors, including patient preferences, comorbidities, previous drug use, risk factors not captured in the FRAX model (e.g. frailty, falls, vitamin D deficiency, increased bone turnover, interval significant decline in bone density) and possible under or overestimation of fracture risk by FRAX. Additional medical evaluation for secondary cause of low bone mineral density may be appropriate. FUTURE SCAN RECOMMENDATION: People with diagnosed cases of osteoporosis or at high risk for fracture should have regular bone mineral density tests. For patients eligible for Medicare, routine testing is allowed once every 2 years. The testing frequency can be increased to one year for patients who have rapidly progressing disease, those who are receiving or discontinuing medical therapy to restore bone mass, or have additional risk factors.
== END 2023-09-09 10:09 | disposition home or self-care (01) ==
LOC: HO.MAMMO 10:08
PROVIDERS: PCP Internal Medicine; Visit Provider Internal Medicine
DX: Z13.820 Encounter for screening for osteoporosis (principal); M85.80 Other specified disorders of bone density and structure, unspecified site; Z78.0 Asymptomatic menopausal state
CPT/HCPCS: 77080

== ENCOUNTER 2024-05-09 08:34 | Outpatient (AMB) | payer MEDICARE, SELFPAY ==
[2024-05-09 08:36] VITALS: BP 160/80; PULSE 65; O2SAT 99; BMI 20.8
--- NOTE | 2024-05-09 08:36 | A.OFFPC_ITS ---
Vital Signs 05/09/24 08:36 Height 5 ft 1 in Weight 110 lb BMI 20.8 BP 160/80 H Blood Pressure Location Lt brachial Position Sitting Pulse 65 Pulse Source Pulse Oximeter Pulse Oximetry (%) 99 Oxygen Delivery Method Room Air Intake Visit Reasons: Regular check up Retail Sales Specialist Required: No Percussion Instructor: Not Required per policy Accompanied by: Self / Same As Patient Allergies No Known Allergies Allergy (Verified 05/09/24 08:36) Medication List - Last Reconciled 05/10/24 by Paco Jordan MD acebutolol 200 mg PO BID aspirin (Adult Aspirin Regimen) 81 mg PO DAILY atorvastatin 5 mg (1/2 x 10 mg) PO DAILY cholecalciferol (vitamin D3) 25 mcg PO DAILY latanoprost 0.005% 1 drp ophthalmic (eye) BEDTIME levothyroxine 100 mcg PO DAILY losartan 100 mg PO DAILY oxycodone 5 mg PO Q8H PRN spironolactone 25 mg PO DAILY tramadol 50 mg PO Q6H PRN Tobacco use date assessed: 05/09/24 Fall risk assessment: No Falls in past year Last assessed Fall Risk: 05/09/24 Dental Screening Dental Screen Date: 05/09/24 Did you have a dental visit in the last 12 months?: Yes Did you have a dental problem in the last 6 months where you did not have access to dental care?: No Was dental information given to patient?: Patient has dentist HPI Regular check up HPI Details hypothyroidism on rx; doing well and compliant [facility] Medical History Atrial fibrillation Somatic dysfunction of right sacroiliac joint Right knee pain Surgical History History of colonoscopy History of surgery H/O total hysterectomy Family History Father CAD (coronary artery disease) Mother CAD (coronary artery disease) Social History Housing: House Alcohol intake: current Alcohol intake frequency: 0-2 drinks per day Alcohol type: beer and wine Patient Tobacco Use Status: Never used Tobacco e-Cigarette/Vaping Use: Never Used Second Hand Smoke Exposure: No service: No Current occupational status: retired Cognitive needs: No Hearing needs: Yes Vision needs: Yes Questionnaire PHQ-9 Over the last 2 weeks, how often have you been bothered by any of the following problems? 1. Little interest or pleasure in doing things: not at all 2. Feeling down, depressed, or hopeless: not at all 3. Trouble falling or staying asleep, or sleeping too much: not at all 4. Feeling tired or having little energy: not at all 5. Poor appetite or overeating: not at all 6. Feeling bad about yourself - or that you are a failure or have let yourself or your family down: not at all 7. Trouble concentrating on things, such as reading the newspaper or watching television: not at all 8. Moving or speaking so slowly that other people could have noticed. Or the opposite - being so fidgety or restless that you have been moving around a lot more than usual: not at all 9. Thoughts that you would be better off or of hurting yourself in some way: not at all Total score: 0 Depression Screening Interpretation: Negative Depression Screening Done: Yes Source: Developed by Drs. Sagar Haile, Pricilla Hatfield, Silviano Bojorquez and colleagues, with an educational ena from [employer]. Thrive Questionnaire Date Thrive assessed: 05/09/24 I am a: Patient What is your living situation today?: I have a steady place to live Within the past 12 months, did the food you bought not last and you didn't have the money to get more?: Never true Within the past 12 months, did you worry whether your food would run out before you got money to buy more?: Never true Do you have trouble paying for medicines?: No Do you have trouble getting transportation to medical appointments?: No Do you have trouble paying your heating and electricity bill?: No Do you have trouble taking care of your child, family member or friend?: No Do you have trouble with day-to-day activities such as bathing, preparing meals, shopping, managing finances, etc.?: No Are you currently unemployed and looking for a job?: No Are you interested in more education?: No Please select the resources that you would like help with: None THRIVE Score: 0 AUDIT C Alcohol Use Questionnaire (AUDIT-C) 1. How often do you have a drink containing alcohol?: 4 or more times a week 2. How many drinks containing alcohol do you have on a typical day when you are drinking?: 1 or 2 3. How often do you have six or more drinks on one occasion?: Never Total Score: 4 Score Reviewed/Action Taken: Yes VENANCIO-7 AMB Questionnaire VENANCIO-7 Date VENANCIO - 7 assessed: 05/09/24 Feeling nervous, anxious, or on edge: 0 = Not at all Not being able to stop or control worryin = Not at all Worrying too much about different things: 0 = Not at all Trouble relaxin = Not at all Being so restless that it is hard to sit still: 0 = Not at all Becoming easily annoyed or irritable: 0 = Not at all Feeling afraid as if something awful might happen: 0 = Not at all Total VENANCIO-7 score (0-4 normal; 5-9 mild; 10-14 moderate; 15-21 severe): 0 Source: Developed by Drs. Sagar Haile, Pricilla Hatfield, Silviano Bojorquez and colleagues, with an educational ena from [employer]. Review of Systems Const Denies chills, Denies headache(s) and Denies weight loss ENT Denies headache(s) Card Denies chest pain, Denies syncope, Denies irregular heart rhythm and Denies dyspnea Resp Denies chest congestion, Denies cough and Denies dyspnea GI Denies abdominal pain, Denies change in stool character, Denies nausea and Denies vomiting Musc Denies deformity and Denies joint swelling Neuro Denies syncope and Denies headache(s) Physical exam (Primary Care) Vital Signs: Last Vital Signs Pulse 65 05/09/24 08:36 BP 160/80 H 05/09/24 08:36 Pulse Ox 99 05/09/24 08:36 Oxygen Delivery Method Room Air 05/09/24 08:36 BMI result Body Mass Index 20.8 Tobacco/Smoking Status: Tobacco use Status Tobacco use date assessed 05/09/24 05/09/24 08:37 Patient Tobacco Use Status Never used Tobacco 05/09/24 08:37 e-Cigarette/Vaping Use Never Used 05/09/24 08:37 PHQ-9: PHQ-9 Score PHQ-9: Total score 0 05/09/24 08:52 Depression Screening Interpretation: Negative Thrive Assessment: Date of Thrive Assessment Date Thrive assessed 05/09/24 05/09/24 08:37 Const General: cooperative, comfortable, no acute distress and alert Neck Neck: Yes no lymphadenopathy Thyroid: Thyroid normal Resp Effort & Inspection: normal respiratory effort Auscultation: clear to auscultation bilaterally Percussion: percussion normal Cardio Jugular venous distension: no JVD Palpation: normal PMI Rate: regular rate Rhythm: regular rhythm Heart sounds: S1 normal heart sound present and S2 normal heart sound present GI Inspection: Yes normal to inspection Palpation (GI): No hepatosplenomegaly present Skin General skin exam: no rashes or lesions noted Extrem General: Yes no clubbing, cyanosis or edema Assessment and Plan Assessment & Plan (1) Hypothyroidism: Code(s): E03.9 - Hypothyroidism, unspecified Plan: stable; same rx Orders: Orders Lipid Panel 05/09/24 Z13.220 - Encounter for screening for lipoid disorders Complete Blood Count Auto Diff 05/09/24 Z13.0 - Encounter for screening for diseases of the blood and blood-forming organs and certain disorders involving the immune mechanism Comprehensive [place]. Panel Fast 05/09/24 Z13.9 - Encounter for screening, unspecified Thyroid Stimulating Hormone 05/09/24 Z13.29 - Encounter for screening for other suspected endocrine disorder Coding Level of Care Code Est Pt Level 3 (01685) Diagnoses Hypothyroidism E03.9
== END 2024-05-09 08:59 | disposition home or self-care (01) ==
PROVIDERS: PCP Internal Medicine; Visit Provider Internal Medicine
DX: E03.9 Hypothyroidism, unspecified (principal)
CPT/HCPCS: 99214

== ENCOUNTER 2024-05-11 07:20 | Outpatient (REF) | payer MEDICARE, OTHER, SELFPAY ==
[2024-05-11 07:35] LABS: MANUAL DIFF FLAG NO
[2024-05-11 08:30] LABS: Basophils Absolute Auto 0.1 X10*3/uL (0.0-0.2); Basophils Percent Auto 0.8 % (0-2); Eosinophils Absolute Auto 0.2 X10*3/uL (0.0-0.4); Eosinophils Percent Auto 1.7 % (0-4); Hematocrit 33.1 % (37.0-47.0); Hemoglobin 11.2 g/dl (12.0-16.0); Imm Gran Abs Auto 0.02 X10*3/uL (0.00-0.03); Imm Gran Pct Auto 0.2 % (0.0-0.4); Lymphocytes Absolute Auto 4.4 X10*3/uL (1.2-4.9); Lymphocytes Percent Auto 49.4 % (20-40); Mean Corpuscular HGB Conc 33.8 g/dl (31.0-35.0); Mean Corpuscular Hemoglobin 31.5 pg (27.0-33.0); Mean Platelet Volume 10.3 fL (9.4-12.3); Monocytes Absolute Auto 0.8 X10*3/uL (0.1-1.2); Monocytes Percent Auto 8.7 % (2-11); Neutrophils Absolute Auto 3.5 x10*3/uL (2.0-8.3); Neutrophils Percent Auto 39.2 % (45-73); Platelet Count 207 X10*3/uL (160-400); Red Blood Count 3.56 X10*6/uL (4.20-5.50); Red Cell Distribution Width 12.8 % (11.0-16.0); White Blood Count 8.9 X10*3/uL (4.8-10.8)
[2024-05-11 09:19] LABS: Alanine Aminotransferase 28 U/L (0-31); Albumin Level 3.9 g/dL (3.5-5.0); Alkaline Phosphatase 79 U/L (39-117); Anion Gap 11 (12-20); Aspartate Amino Transferase 30 U/L (5-31); Bilirubin Total 0.7 mg/dL (0.0-1.0); Blood Urea Nitrogen 18 mg/dL (9-16); Calcium 9.5 mg/dL (8.4-10.2); Carbon Dioxide 25 mmol/L (22-29); Chloride 106 mmol/L (96-108); Cholesterol 142 mg/dL (<200); Estimated Glomerular Filt Rate > 60; Glucose Fasting 106 mg/dL (60-99); HDL Cholesterol 66 mg/dL (>40); LDL Cholesterol Calculated 66 mg/dL (<100); Potassium 4.4 mmol/L (3.3-5.1); Sodium 138 mmol/L (135-145); Total Protein 6.4 g/dL (6.5-8.0); Triglycerides 50 mg/dL (<150)
[2024-05-11 09:25] LABS: Thyroid Stimulating Hormone < 0.01 uIU/mL (0.32-4.0)
== END 2024-05-11 07:21 | disposition home or self-care (01) ==
LOC: HO.LAB 07:20
PROVIDERS: PCP Internal Medicine; Visit Provider Internal Medicine
DX: Z13.220 Encounter for screening for lipoid disorders (principal); Z13.0 Encounter for screening for diseases of the blood and blood-forming organs and certain disorders involving the immune mechanism; Z13.29 Encounter for screening for other suspected endocrine disorder; Z13.6 Encounter for screening for cardiovascular disorders
CPT/HCPCS: 36415; 80053; 80061; 84443; 85025

== ENCOUNTER 2024-06-14 07:54 | Outpatient (REF) | payer MEDICARE, OTHER, SELFPAY ==
--- NOTE | ~2024-06-14 | XR_ITS ---
EXAMINATION: XR CHEST CLINICAL INFORMATION: Nonspecific chest pain COMPARISON: None available. TECHNIQUE: 2 views of the chest were obtained. FINDINGS: No significant abnormality is noted involving the heart, lungs, mediastinum, bony thorax or soft tissues. XR/XR chest 2V IMPRESSION: Unremarkable examination.
== END 2024-06-14 07:55 | disposition home or self-care (01) ==
LOC: HO.XRAY 07:54
PROVIDERS: PCP Internal Medicine; Visit Provider Internal Medicine
DX: R07.9 Chest pain, unspecified (principal)
CPT/HCPCS: 71046

== ENCOUNTER 2024-12-20 10:39 | Outpatient (AMB) | payer MEDICARE, SELFPAY ==
[2024-12-20 10:51] VITALS: BP 180/90; PULSE 70; TEMP 36.3; O2SAT 96; BMI 22.0
--- NOTE | 2024-12-20 10:51 | A.OFFPC_ITS ---
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 Accompanied by: Self / Same As Patient Allergies No Known Allergies Allergy (Verified 12/20/24 10:56) Medication List - Last Reconciled 12/20/24 by Paco Jordan MD acebutolol 200 mg PO BID aspirin (Adult Aspirin Regimen) 81 mg PO DAILY atorvastatin 5 mg (1/2 x 10 mg) PO DAILY cholecalciferol (vitamin D3) 25 mcg PO DAILY latanoprost 0.005% 1 drp ophthalmic (eye) BEDTIME levothyroxine 75 mcg PO DAILY losartan 100 mg PO DAILY oxycodone 5 mg PO Q8H PRN 30 days spironolactone 25 mg PO DAILY tramadol 50 mg PO Q6H PRN Tobacco use date assessed: 12/20/24 Fall risk assessment: No Falls in past year Last assessed Fall Risk: 12/20/24 Dental Screening Dental Screen Date: 12/20/24 Did you have a dental visit in the last 12 months?: No Did you have a dental problem in the last 6 months where you did not have access to dental care?: No Was dental information given to patient?: Patient has dentist HPI thyroid med HPI Details had a recent change in her thyroid med; due for lab [facility] Medical History Atrial fibrillation Somatic dysfunction of right sacroiliac joint Right knee pain Surgical History History of colonoscopy History of surgery H/O total hysterectomy Family History Father CAD (coronary artery disease) Mother CAD (coronary artery disease) Social History Housing: House Alcohol intake: current Alcohol intake frequency: 0-2 drinks per day Alcohol type: beer and wine Patient Tobacco Use Status: Never used Tobacco e-Cigarette/Vaping Use: Never Used Second Hand Smoke Exposure: No service: No 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 1. Little interest or pleasure in doing things: not at all 2. Feeling down, depressed, or hopeless: not at all 3. Trouble falling or staying asleep, or sleeping too much: not at all 4. Feeling tired or having little energy: not at all 5. Poor appetite or overeating: not at all 6. Feeling bad about yourself - or that you are a failure or have let yourself or your family down: not at all 7. Trouble concentrating on things, such as reading the newspaper or watching television: not at all 8. Moving or speaking so slowly that other people could have noticed. Or the opposite - being so fidgety or restless that you have been moving around a lot more than usual: not at all 9. Thoughts that you would be better off or of hurting yourself in some way: not at all Total score: 0 Depression Screening Interpretation: Negative Depression Screening Done: Yes 57076 - PHQ-9 Billing: Yes Source: Developed by Drs. Sagar Haile, Pricilla Hatfield, Silviano Bojorquez and colleagues, with an educational ena from [employer]. Thrive Questionnaire Date Thrive assessed: 12/20/24 I am a: Patient What is your living situation today?: I have a steady place to live Within the past 12 months, did the food you bought not last and you didn't have the money to get more?: Never true Within the past 12 months, did you worry whether your food would run out before you got money to buy more?: Never true Do you have trouble paying for medicines?: No Do you have trouble getting transportation to medical appointments?: No Do you have trouble paying your heating and electricity bill?: No Do you have trouble taking care of your child, family member or friend?: No Do you have trouble with day-to-day activities such as bathing, preparing meals, shopping, managing finances, etc.?: No Are you currently unemployed and looking for a job?: No Are you interested in more education?: No Please select the resources that you would like help with: None Currently or been in a relationship where the following occur: No concerns reported THRIVE Score: 0 AUDIT C Alcohol Use Questionnaire (AUDIT-C) 1. How often do you have a drink containing alcohol?: 4 or more times a week 2. How many drinks containing alcohol do you have on a typical day when you are drinking?: 1 or 2 3. How often do you have six or more drinks on one occasion?: Never Total Score: 4 Score Reviewed/Action Taken: Yes VENANCIO-7 AMB Questionnaire VENANCIO-7 Date VENANCIO - 7 assessed: 12/20/24 Feeling nervous, anxious, or on edge: 0 = Not at all Not being able to stop or control worryin = Not at all Worrying too much about different things: 0 = Not at all Trouble relaxin = Not at all Being so restless that it is hard to sit still: 0 = Not at all Becoming easily annoyed or irritable: 0 = Not at all Feeling afraid as if something awful might happen: 0 = Not at all Total VENANCIO-7 score (0-4 normal; 5-9 mild; 10-14 moderate; 15-21 severe): 0 Source: Developed by Drs. Sagar Haile, Pricilla Hatfield, Silviano Bojorquez and colleagues, with an educational ena from [employer]. VENANCIO-7 Assessment Billing VENANCIO-7 Assessment Tool: VENANCIO-7 Assessment 14656 Review of Systems Const Denies chills, Denies headache(s) and Denies weight loss ENT Denies headache(s) Card Denies chest pain, Denies syncope, Denies irregular heart rhythm and Denies dyspnea Resp Denies chest congestion, Denies cough and Denies dyspnea GI Denies abdominal pain, Denies change in stool character, Denies nausea and Denies vomiting Musc Denies deformity and Denies joint swelling Neuro Denies syncope and Denies headache(s) Physical exam (Primary Care) Vital Signs: Last Vital Signs Temp 97.3 F 12/20/24 10:51 Pulse 70 12/20/24 10:51 BP 180/90 H 12/20/24 10:51 Pulse Ox 96 12/20/24 10:51 Oxygen Delivery Method Room Air 12/20/24 10:51 BMI result Body Mass Index 22.0 Tobacco/Smoking Status: Tobacco use Status Tobacco use date assessed 12/20/24 12/20/24 10:57 Patient Tobacco Use Status Never used Tobacco 12/20/24 10:57 e-Cigarette/Vaping Use Never Used 12/20/24 10:57 PHQ-9: PHQ-9 Score PHQ-9: Total score 0 12/20/24 10:57 Depression Screening Interpretation: Negative Thrive Assessment: Date of Thrive Assessment Date Thrive assessed 12/20/24 12/20/24 10:57 Currently or been in a relationship where the following occur: No concerns reported Const General: cooperative, comfortable, no acute distress and alert Neck Neck: Yes no lymphadenopathy Thyroid: Thyroid normal Resp Effort & Inspection: normal respiratory effort Auscultation: clear to auscultation bilaterally Percussion: percussion normal Cardio Jugular venous distension: no JVD Palpation: normal PMI Rate: regular rate Rhythm: regular rhythm Heart sounds: S1 normal heart sound present and S2 normal heart sound present GI Inspection: Yes normal to inspection Palpation (GI): No hepatosplenomegaly present Skin General skin exam: no rashes or lesions noted Extrem General: Yes no clubbing, cyanosis or edema Coding Level of Care Code Est Pt Level 3 (21377) Diagnoses Hypothyroidism E03.9 Additional Codes VENANCIO-7 Assessment Billing - VENANCIO-7 Assessment Tool: VENANCIO-7 Assessment 48065 ([id number]) PHQ-9 - 82177 - PHQ-9 Billing: Yes ([id number]) Assessment & Plan Assessment & Plan (1) Hypothyroidism: Code(s): E03.9 - Hypothyroidism, unspecified Category: Medical Plan: same rx recheck labs
--- OUTSIDE RECORDS SUMMARY | 2024-12-20 11:54 | XMS_ITS | Encounter Summary ---
Author Organization [facility] [employer] [facility] Address [address] [place] [address] [address] [place] [address] Care Team Providers Care Enterprise Data Architect Name Role Phone Unavailable Primary Care Provider Unavailabl e Encounter Details Date Type Department Care Team (Latest Contact Info) Description 06/12/2022 Abstract [facility] CONVERSIONS Dental, Provider, DDS Social History Tobacco Use Types Packs/Day Years Used Date Smoking Tobacco: Never Assessed Comments Unknown Sex and Gender Information Value Date Recorded Sex Assigned at Female 09/08/2022 10:20 AM EDT Legal Sex Female 10:20 AM EDT Gender Identity Female 09/08/2022 10:20 AM EDT Sexual Orientation Straight 09/08/2022 10 :20 AM EDT documented as of this encounter Plan of Treatment Upcoming Encounters Date Type Department Care Team (Late st Contact Info) Description 03/10/2025 10:00 AM EDT Office Visit [facility] [address] [place] [address] Lenore Bishop documented as of this encounter Visit Diagnoses Not on filedocumented in this encounter
--- OUTSIDE RECORDS SUMMARY | 2024-12-20 11:54 | XMS_ITS | Clinical Summary ---
Author Organization [employer] [facility] Address [address] [facility] [address] [place] [address] Care Team Providers Care Mobile Engineer Name Role Phone Unavailable Primary Care Provider Unavailabl e Allergies No known active allergies Medications acebutolol (Sectral) 200 MG capsule Take 200 mg by mouth 2 times daily. 12/04/2023 Active atorvastatin (Lipitor) 10 MG tablet Take 5 mg by mouth in the morning. 09/07/2023 Active spironolactone (Aldactone) 25 MG tablet Take 25 mg by mouth in the morning. 10/07/2023 Active lisinopril 40 MG tablet Take 40 mg by mouth in the morning. 10/19/2023 Active levothyroxine (Synthroid, Levoxyl) 100 MCG tablet Take 100 mcg by mouth in the morning. 10/19/2023 Active latanoprost (Xalatan) 0.005 % ophthalmic solution PLACE ONE DROP IN EACH EYE AT BEDTIME 11/26/2023 Active losartan (Cozaar) 25 MG tablet Take 100 mg by mouth. Active Active Problems Problem Noted Date Diagnosed Date DDD (degenerative disc disease), lumbosacral Essential hypertension 07/04/2021 Overview (10/11/2024): Primary hypertension on multiple agents. No history of renal artery stenosis. Last Assessment & Plan: I am concerned with the elevated blood pressure in the office today. Her home readings are much better but still are mostly mildly elevated. I suggest that she take a full tablet of spironolactone daily. Her potassium is well within normal limits and her renal function is normal as well. She will continue to maintain a low-sodium diet and encouraged regular exercise. Glaucoma 07/04/2021 Hyperlipidemia 07/04/2021 Overview (10/11/2024): Last Assessment & Plan: I do not have a recent lipid profile to review but she continues to eat a healthy diet, remain fairly thin and take a statin. Previous LDL was 80 range with a normal HDL. Encouraged her to continue her healthy diet and regular exercise. Hyperthyroidism 07/04/2021 Overview (10/11/2024): S/p radiation treatment on levothyroxine Paroxysmal A-fib 07/04/2021 Overview (10/11/2024): 78-year-old female with a loop recorder in 2017 that mention versus atrial fibrillation that were really short atrial runs. She had been on aspirin for this and ultimately was placed on acebutolol for control. She says she can feel them throughout the day without any clear trigger. They very short lasting less than 10 seconds. CHADSVASC score of 4 for age, female gender and hypertension. Last Assessment & Plan: Beverly continues to have occasional symptomatic atrial runs but no clear evidence of atrial fibrillation. We had a long discussion regarding pros and cons of anticoagulation. Generally, our studies suggest minimal of 6 minutes prior to considering the rhythm atrial fibrillation from the standpoint of needing anticoagulation. The acebutolol seems to be working adequately and her palpitations are minimally symptomatic such that she does not want to move up to a antiarrhythmic medication which we reviewed in regards to risks and benefits. I did suggest she continue intensify her blood pressure regimen and continue a healthy lifestyle with minimalization of alcohol. Encounters Date Type Department Care Team Description 11/07/2024 Telephone [facility]ULT [facility] [address] [place] [address] Larry Hernández 10/20/2024 2:30 PM EST Office Visit [facility] [address] [place] [address] Case Pineda DDS 10/17/2024 Telephone [facility] [address] [place] [address] Klaudia Finn DMD recement crown 10/11/2024 10:30 AM EST Office Visit [facility] ADULT [facility] [address] [place] [address] Case Pineda DDS from Last 3 Months Social History Tobacco Use Types Packs/Day Years Used Date Smoking Tobacco: Never Passive Smoke Exposure: Never Smokeless Tobacco: Never Tobacco Cessation:Counseling Given: Not Answered Alcohol Use Standard Drinks/Week Comments Yes 5 (1 standard drink = 0.6 oz pur e alcohol) Comments Unknown Sex and Gender Information Value Date Recorded Sex Assigned at Female 09/08/2022 10:20 AM EDT Legal Sex Female 10:20 AM EDT Gender Identity Female 09/08/2022 10:20 AM EDT Sexual Orientation Straight 09/08/2022 10 :20 AM EDT Last Filed Vital Signs Vital Sign Reading Time Taken Comments Blood Pressure 152/94 09/09/2024 10:23 AM EDT Pulse 60 09/09/2024 10:23 AM EDT Temperature - - Respiratory Rate - - Oxygen Saturation - - Inhaled Oxygen Concentration - - Weight - - Height - - Body Mass Index - - Plan of Treatment Upcoming Encounters Date Type Department Care Team (Late st Contact Info) Description 03/10/2025 10:00 AM EDT Office Visit [facility] [address] [place] [address] Lenore Bishop Health Maintenance Due Date Last Done Comments Dental X-Ray: Full Mouth 1945 Depression Screening 1945 Lipid Panel 1945 SDOH Screening 1947 Alcohol/Substance Use Screening 1959 Hepatitis C Screening 1965 Pneumococcal Vaccine: 50+ Years (1 of 1 - PCV) 1997 DTaP/Tdap/Td Vaccines (1 - Tdap) 10/21/2014 10/20/2014 RSV Patients and Patients Aged 60 years or older (1 - 1-dose 75+ series) 2022 Dental Oral Exam 06/08/2024 12/08/2023 Dental X-Ray: Bitewings 12/09/2024 12/08/2023 Dental Prophylaxis 03/10/2025 09/09/2024, 0 12/08/2023, 03/24/2023 Tobacco Screening 10/20/2025 10/20/2024 Zoster Vaccines Completed 11/30/2020, 08/18/2020 COVID-19 Vaccine Completed 09/21/2024, , 10/07/2021, Additional history exists Influenza Vaccine Completed 09/21/2024, , 09/23/2018 HIB Vaccines Aged Out No longer eligi ble based on patient's age to complete this topic HPV Vaccines Aged Out No longer eligi ble based on patient's age to complete this topic Hepatitis A Vaccines Aged Out No long er eligible based on patient's age to complete this topic Hepatitis B Vaccines Aged Out No long er eligible based on patient's age to complete this topic IPV Vaccines Aged Out No longer eligi ble based on patient's age to complete this topic Meningococcal Vaccine Aged Out No jonny michael eligible based on patient's age to complete this topic RSV under 20 months Aged Out No longe r eligible based on patient's age to complete this topic Rotavirus Vaccines Aged Out No longer eligible based on patient's age to complete this topic Procedures Procedure Name Priority Date/Time Associated Diagnosis Comments NO CHARGE PROCEDURE Routine 10/20/2024 2 :30 PM EST ADJUNCTIVE GENERAL SERVICES - PROFESSIONAL VISITS - CASE PRESENTATION, SUBSEQUENT TO DETAILED AND EXTENSIVE TREATMENT PLANNING Routine 10/11/2024 10:30 AM EST 15 MODB RESTORATIVE - RESIN-BASED COMPOSITE RESTORATIONS - DIRECT - RESIN-BASED COMPOSITE - FOUR OR MORE SURFACES, POSTERIOR Routine 10/11/2024 10:30 AM EST PROPHYLAXIS - ADULT Routine 09/09/2024 1 0:00 AM EDT BITEWINGS - 4 RADIOGRAPHIC IMAGES Routine 12/08/2023 11:00 AM EST PERIODIC ORAL EVALUATION - ESTABLISHED PATIENT Routine 12/08/2023 11:00 AM EST from Last 3 Months or Most Recently Relevant to Health Maintenance Insurance DENTAL - HSN FULL (MEDICAID)
--- OUTSIDE RECORDS SUMMARY | 2024-12-20 11:54 | XMS_ITS | Encounter Summary ---
Author Organization [facility] [employer] [facility] Address [address] [facility] [address]t [place] [address] Care Team Providers Care Houseperson Name Role Phone Unavailable Primary Care Provider Unavailabl e Encounter Details Date Type Department Care Team (Late Contact Info) Description 01/08/2023 Telephone [facility] ADULT D[facility] [address], [place] [phone] Jack Hatfield [address] [place], [place] [phone] Social History Tobacco Use Types Packs/Day Years Used Date Smoking Tobacco: Never Assessed Comments Unknown Sex and Gender Information Value Date Recorded Sex Assigned at Female 09/08/2022 10:20 AM EDT Legal Sex Female 10:20 AM EDT Gender Identity Female 09/08/2022 10:20 AM EDT Sexual Orientation Straight 09/08/2022 10 :20 AM EDT COVID-19 Exposure Response Date Recorded In the last 10 days, have yo u been in contact with someone who was confirmed or suspected to have Coronavirus/COVID-19? No / Unsure 01/02/2023 10:58 AM EST documented as of this encounter Plan of Treatment Upcoming Encounters Date Type Department Care Team (Late Contact Info) Description 03/10/2025 10:00 AM EDT Office Visit [facility] ADULT [facility] [address] [place] [address] Lenore Bishop documented as of this encounter Visit Diagnoses Not on filedocumented in this encounter
--- OUTSIDE RECORDS SUMMARY | 2024-12-20 11:54 | XMS_ITS | Encounter Summary ---
Author Organization [facility] Address [address] [place] [id number] Care Team Providers Care Map Mounter Name Role Phone Paco Jordan MD Primary Care Provider [phone] Reason for Visit * Reason Onset Date Comments medical records 11/22/2024 Encounter Details Date Type Department Care Team ([facility] st Contact Info) Description 11/22/2024 Telephone [facility] [address] [facility] [address] [place] [address] Steve Back MD [address] [place] [address] medical records Social History Tobacco Use Types Packs/Day Years Used Date Smoking Tobacco: Former Smokeless Tobacco: Never Alcohol Use Standard Drinks/Week Comments Yes 0 (1 standard drink = 0.6 oz pur e alcohol) Comments Unknown Sex and Gender Information Value Date Recorded Sex Assigned at Not on file Legal Sex Female 10:29 AM EST Gender Identity Not on file Sexual Orientation Not on file documented as of this encounter Progress Notes * Haven Gordillo - 11/22/2024 3:02 PM EST Medical Records Request Caller: Patients Calling from: Primary care provider Requesting provider's first & last name: Dr. Paco Jordan, please put attention Dr. Samuels as Dr. Jordan is out of the office today. Direct Phone Number or Ext: [phone] What records are being requested: labs How far back: 10/28/24 What is it for: provider review Needed by: [facility] TODAY Beverly would like a call back once these are sent, she can be reached at [phone]. documented in this encounter Plan of Treatment Not on file documented as of this encounter Visit Diagnoses Not on filedocumented in this encounter Care Teams Map Mounter Relationship Specialty Start Date End Date Paco Jordan MD [address] [facility] [address] [place] [address] PCP - General Internal Medicine 04/02/21 documented as of this encounter
--- OUTSIDE RECORDS SUMMARY | 2024-12-20 11:54 | XMS_ITS | Encounter Summary ---
Author Organization [employer] Address [address] [facility] [address] [place] [address] Care Team Providers Care Research Programmer Name Role Phone Unavailable Primary Care Provider Unavailabl e Reason for Visit * Reason Onset Date Comments recement crown 10/17/2024 Encounter Details Date Type Department Care Team ([facility] st Contact Info) Description 10/17/2024 Telephone [facility] [address] [place] [address] Klaudia Finn DMD [address] [place] [address] recement crown Social History Tobacco Use Types Packs/Day Years Used Date Smoking Tobacco: Never Passive Smoke Exposure: Never Smokeless Tobacco: Never Alcohol Use Standard Drinks/Week Comments Yes 5 (1 standard drink = 0.6 oz pur e alcohol) Comments Unknown Sex and Gender Information Value Date Recorded Sex Assigned at Female 09/08/2022 10:20 AM EDT Legal Sex Female 10:20 AM EDT Gender Identity Female 09/08/2022 10:20 AM EDT Sexual Orientation Straight 09/08/2022 10 :20 AM EDT documented as of this encounter Miscellaneous Notes * Telephone Encounter - Keila Ramirez - 10/17/2024 10:22 AM EST Patient came in September and had permanent crown from many years ago recemented. She states it felloff and it was a temp crown that was put in. It seems like it is the permanent crown with a temp fix and needs to be recemented again with evaluation for new crown. Patient coming in for recement of same crown tooth #10 DR documented in this encounter Plan of Treatment Upcoming Encounters Date Type Department Care Team (Late st Contact Info) Description 03/10/2025 10:00 AM EDT Office Visit [facility] ADULT DENT[facility] [address] [place] [address] Lenore Bishop documented as of this encounter Visit Diagnoses Not on filedocumented in this encounter
--- OUTSIDE RECORDS SUMMARY | 2024-12-20 11:54 | XMS_ITS | Clinical Summary ---
Author Organization [address] [place] [address] [place] [phone] Phone Care Team Providers Care Finisher [employer] Name Role Phone Paco Jordan MD Primary Care Provider [phone] Allergies No known active allergies Medications acebutoloL (SECTRAL) 200 mg capsule TAKE ONE CAPSULE TWICE DAILY 11/04/2022 Active atorvastatin (LIPITOR) 10 mg tablet Take 5 mg by mouth daily. (1/2 tab) Active CHOLECALCIFEROL , VITAMIN D3, ORAL Take 500 Int'l Units by mouth daily. Active levothyroxine (SYNTHROID, LEVOTHROID) 88 mcg tablet Take 1 tablet (88 mcg total) by mouth 1 (one) time each day before breakfast. Active spironolactone (ALDACTONE) 25 mg tablet Take 1 tablet (25 mg total) by mouth 1 (one) time each day. 90 tablet 3 10/28/2024 Active losartan (COZAAR) 100 mg tablet TAKE ONE TABLET EVERY DAY 30 tablet 5 11/18/2024 Active Active Problems Problem Noted Date Diagnosed Date DDD (degenerative disc disease), lumbosacral Essential hypertension 07/04/2021 Overview (09/16/2024): Primary hypertension on multiple agents. No history [...] regular exercise. Glaucoma 07/04/2021 Hyperlipidemia 07/04/2021 Overview (09/16/2024): Last Assessment & Plan: I do not have a recent lipid profile to review but she continues to eat a healthy diet, remain fairly thin and take a statin. Previous LDL was 80 range with a normal HDL. Encouraged her to continue her healthy diet and regular exercise. Hyperthyroidism 07/04/2021 Overview (09/16/2024): S/p radiation treatment on levothyroxine Paroxysmal A-fib 07/04/2021 Overview (09/16/2024): 78-year-old female with a loop recorder in [...] Encounters Date Type Department Care Team Description 11/22/2024 Telephone [facility] Cardiology [facility] [address] [place] [address] Steve Back MD medical records 11/14/2024 7:00 AM EST Ancillary Procedure [facility] Cardiology [facility] [address] [place] [address] Paroxysmal A-fib (CMS/HCC) 11/04/2024 Telephone [facility] Cardiology [facility] [address] [place] [phone] Kavya Cohn NP Results (TSH) 10/28/2024 Telephone [facility] Cardiology [facility] [address] [facility] [address] [place] [phone] Kavya Cohn NP blood pressure self measured 10/26/2024 Telephone [facility] - [facility] [address] [facility] [address] [place] [phone] Steve Back MD Med Refill (Spironolactone 25mg daily/Refill sent to pharmacy 10/28/24 (sec)/) 10/21/2024 Telephone [facility] Cardiology [facility] [address] [facility] [address] [place] [phone] Steve Back MD Care Rep; ROCT - 88082 (Ok to Book); ROCT Enrollment (Enrolling patient for 30 day ROCT) 10/20/2024 12:40 PM EST Office Visit [facility] Cardiology [facility] [address] [facility] [address] [place] [phone] Kavya Cohn NP Paroxysmal A-fib (CMS/HCC) (Primary Dx) from Last 3 Months Surgical History Surgery Date Site/Laterality Comments HYSTERECTOMY PROCEDURE: HISTORICAL HYSTERECTOMY TONSILLECTOMY PROCEDURE: HISTORICAL TONSILLECTOMY OTHER SURGICAL HISTORY PROCEDURE: HISTORY OTHER; COMMENT: radioactive I2 treatment for hyperthyroidism Medical History Medical History Date Comments Essential hypertension 07/04/2021 DX:Essent ial hypertension Hyperlipidemia 07/04/2021 DX:Hyperlipidemi a Paroxysmal A-fib (CMS/HCC) 07/04/2021 DX:Pa roxysmal A-fib ([facility]) Glaucoma 07/04/2021 DX:Glaucoma History of shingles 07/04/2021 DX:History o f shingles; COMMENT: November 2018, L arm to wrist x 3 mos. Hyperthyroidism 07/04/2021 DX:Hyperthyroidi sm; COMMENT: S/p radiation treatment on levothyroxine DDD (degenerative disc disea se), lumbosacral 07/09/2021 DX:DDD (degenerative disc di sease), lumbosacral Family History Medical History Relation Name Comments Coronary artery disease Father Other: heart disease Father Coronary artery disease Mother Kidney failure Mother at 96 Relation Name Status Comments Father Mother Social History Tobacco Use Types Packs/Day Years Used Date Smoking Tobacco: Former Smokeless Tobacco: Never Alcohol Use Standard Drinks/Week Comments Yes 0 (1 standard drink = 0.6 oz pur e alcohol) Comments Unknown Sex and Gender Information Value Date Recorded Sex Assigned at Not on file Legal Sex Female 10:29 AM EST Gender Identity Not on file Sexual Orientation Not on file Obstetrics History Last Filed Vital Signs Vital Sign Reading Time Taken Comments Blood Pressure 180/100 10/20/2024 12:45 PM EST Pulse 78 09/08/2023 9:30 AM EDT Temperature - - Respiratory Rate - - Oxygen Saturation 98% 10/20/2024 12:45 PM EST Inhaled Oxygen Concentration - - Weight 49.9 kg (110 lb) 10/20/2024 12:45 PM EST Height 154.9 cm (5' 1 ) 10/20/2024 12:45 PM EST Body Mass Index 20.78 10/20/2024 12:45 PM EST Plan of Treatment Health Maintenance Due Date Last Done Comments Pneumococcal Vaccine: 50+ Years (1 of 1 - PCV) 1997 DTaP,Tdap,and Td Vaccines (2 - Td or Tdap) 11/17/2014 10/20/2014 RSV Immunization Patients 60+ Years Old (1 - 1-dose 75+ series) 2022 Cholesterol Screening (Lipid Panel) 10/07/2022 Depression Screening 10/07/2022 Falls Risk Assessment 10/07/2022 Hepatitis C Screening 10/07/2022 Medicare Annual Wellness Visit 10/07/2022 Osteoporosis Screening (Bone Density Screening) 10/07/2022 Social Influencers of Health Screening 10/07/2022 Hypertension/CHF/CAD Annual BMP Blood Test 10/28/2025 10/28/2024, 01/21/2024 Zoster Vaccines Completed 11/30/2020, 08/18/2020 COVID-19 Vaccine [...] on patient's age to complete this topic MMR Vaccines Aged Out No longer eligi ble based on patient's age to complete this topic Meningococcal ACWY Vaccine Aged Out N o longer eligible based on patient's age to complete this topic Meningococcal B Vacine Aged Out No lo nger eligible based on patient's age to complete this topic RSV Immunization Patients Under 20 months Aged Out No longer eligible based on patient's age to complete this topic Varicella Vaccines Aged Out No longer eligible based on patient's age to complete this topic Procedures Procedure Name Priority Date/Time Associated Diagnosis Comments CARDIAC FEATHEREDGER AND REDUCER MACHINE W/ CONNECTION (MCOT) Routine 11/15/2024 6:42 AM EST Paroxysmal A-fib (CMS/HCC) TRIIODOTHYRONINE FREE Routine 10/28/2024 8:06 AM EST Paroxysmal A-fib (CMS/HCC) FREE THYROXINE WITH REFLEX TO FREE TRIIODOTHYRONINE Routine 10/28/2024 8:06 AM EST Paroxysmal A-fib (CMS/HCC) BASIC METABOLIC PANEL Routine 10/28/2024 8:06 AM EST Paroxysmal A-fib (CMS/HCC) THYROID STIMULATING HORMONE WITH REFLEX TO FREE T4 AND FREE T3 Routine 10/28/2024 8:06 AM EST Paroxysmal A-fib (CMS/HCC) MAGNESIUM Routine 10/28/2024 8:06 AM EST Paroxysmal A-fib (CMS/HCC) ECG 12-LEAD Routine 10/25/2024 8:57 AM EST Paroxysmal A-fib (CMS/HCC) from Last 3 Months Results * CARDIAC FEATHEREDGER AND REDUCER MACHINE W/ CONNECTION (MCOT) (11/15/2024 6:42 AM EST) Anatomical Region Laterality Modality Cardiac Diagnost ic Impressions 12/14/2024 10:07 AM EST Normal sinus rhythm with a rate related right bundle branch block. ??Average heart rate 65 bpm. ??Frequent premature atrial complexes with a PAC burden of 3.9% and rare premature ventricular complexes with a PVC burden of 1.1%. ??No atrial fibrillation. Narrative 12/14/2024 10:07 AM EST ?Normal sinus rhythm with frequent PACs and rare PVCs. ??No documented atrial or ventricular arrhythmias. [facility] DIAGNOSTIC TESTING DEPARTMENT [address] [facility], [id number], [place] [address] TEL: FAX: TYPE OF TEST 30 day ROCT monitor. DATES OF MONITORIN11/14/24- 12/14/24 (Monitor not worn after 12/08/24) REQUESTING PHYSICIAN: Kavya Cohn NP PRIMARY CARE PROVIDER: Paco Delgado MD INDICATION: Paroxysmal Atrial Fibrillation, Palpitations PRELIMINARY FINDINGS FROM FIRST CALL MEDICAL: 1. The predominant rhythm was sinus, sinus arrhythmia, with Intermittent BBB. 2. The average heart rate was 65 bpm, minimum heart rate was 54 bpm, maximum heart rate was 103 bpm. 3. Total VE burden: 1.1% consisting of singles. 4. Total SVE burden: 3.9% consisting of singles, couplets, triplets, with Atrial Run's & Atrial Run's with Aberrancy present. 5. There were 25 patient triggered symptomatic events. Kavya Cohn NP CV CARDIAC SERVICES PROCEDUR ES Final Result * (ABNORMAL) Thyroid stimulating hormone with reflex to free t4 and free t3 (10/28/2024 8:06 AM EST) TSH 0.05(L) 0.40 - 4.00 mcIU/mL LAB CHEMISTRY METHOD 10/28/2024 9:48 AM EST [facility] Blood Venous blood specimen / Unknown Venipuncture / Unknown 10/28/2024 8:06 AM EST 10/28/2024 9:03 AM EST Kavya Cohn MOTORCYCLE SUBASSEMBLER LAB BLOOD ORDERABLES Final R esult Performing Organization Address City/[facility]/ZIP Co de Phone Number [facility] [address] [place] [address], [place] [phone] * Free thyroxine with reflex to free triiodothyronine (10/28/2024 8:06 AM EST) Free T4 1.77 0.70 - 1.80 ng/dL LAB CHEMISTRY METHOD 10/28/2024 10:14 AM EST [facility] Blood Venous blood specimen / Unknown Venipuncture / Unknown 10/28/2024 8:06 AM EST 10/28/2024 9:03 AM EST us Kavya Cohn MOTORCYCLE SUBASSEMBLER LAB BLOOD ORDERABLES Final R esult Performing Organization Address [facility] Co de Phone Number [facility] [address] [place] [address], [place] [phone] * Triiodothyronine free (10/28/2024 8:06 AM EST) T3, Free 252 230 - 420 pcg/dL LAB CHEMISTRY METHOD 10/28/2024 10:42 AM EST [facility] Blood Venous blood specimen / Unknown Venipuncture / Unknown 10/28/2024 8:06 AM EST 10/28/2024 9:03 AM EST Kavya Cohn MOTORCYCLE SUBASSEMBLER LAB BLOOD ORDERABLES Final R esult Performing Organization Address City/[facility]/ZIP Co de Phone Number [facility] [address] [place] [address], [place] [phone] * Magnesium (10/28/2024 8:06 AM EST) Magnesium 1.9 1.9 - 2.6 mg/dL LAB CHEMISTRY METHOD 10/28/2024 9:36 AM [facility] Blood Venous blood specimen / Unknown Venipuncture / Unknown 10/28/2024 8:06 AM EST 10/28/2024 9:03 AM EST us Kavya Cohn MOTORCYCLE SUBASSEMBLER LAB BLOOD ORDERABLES Final R esult [facility] [address] [place] [address], * (ABNORMAL) Basic metabolic panel (10/28/2024 8:06 AM EST) Sodium 127(L) 133 - 145 mmol/L LAB CHEMISTRY METHOD 10/28/2024 9:36 AM [facility] Potassium 4.6 3.5 - 5.5 mmol/L LAB CHEMISTRY METHOD 10/28/2024 9:36 AM [facility] Chloride 94(L) 96 - 110 mmol/L LAB CHEMISTRY METHOD 10/28/2024 9:36 AM [facility] CO2 27 21 - 32 mmol/L LAB CHEMISTRY METHOD 10/28/2024 9:36 AM [facility] Anion Gap 6 3 - 11 LAB CHEMISTRY METHOD 10/28/2024 9:36 AM [facility] Glucose 98 70 - 100 mg/dL LAB CHEMISTRY METHOD 10/28/2024 9:36 AM [facility] BUN 13 5 - 25 mg/dL LAB CHEMISTRY METHOD 10/28/2024 9:36 AM [facility] Creatinine 0.82 0.50 - 1.10 mg/dL LAB CHEMISTRY METHOD 10/28/2024 9:36 AM [facility] eGFR 74 >=60 mL/min/1. 73m2 LAB CHEMISTRY METHOD 10/28/2024 9:36 AM [facility] Comment:Calculation based on the??Chronic Kidney Disease Epidemiology Collaboration (CKD-EPI) equation refit??without adjustment for race. BUN/Creatinine Ratio 15.9 LAB CHEMISTRY METHOD 10/28/2024 9:36 AM EST [facility] Calcium 9.5 8.5 - 10.5 mg/dL LAB CHEMISTRY METHOD 10/28/2024 9:36 AM EST [facility] Blood Venous blood specimen / Unknown Venipuncture / Unknown 10/28/2024 8:06 AM EST 10/28/2024 9:03 AM EST Kavya Cohn MOTORCYCLE SUBASSEMBLER LAB BLOOD ORDERABLES Final R esult Performing Organization Address City/[facility]/ZIP Co de Phone Number [facility]) [facility] [address] [place] [address], [place] [phone] * ECG 12 lead (10/25/2024 8:57 AM EST) Ventricular Rate ECG 59 BPM [facility] Atrial Rate 59 BPM [facility] P-R Interval 132 ms GEMUSE QRS Duration 84 ms GEMUSE Q-T Interval 414 ms GEMUSE QTc 409 ms GEMUSE P Wave [place] 85 degrees GEMUSE R [place] 61 degrees GEMUSE T [place] 131 degrees GEMUSE ECG Interpretation Sinus bradycardia with sinus arrhythmia ST and T wave abnormality, consider lateral ischemia Abnormal ECG When compared with ECG of 18-JUN-1999 03:08, T wave inversion now evident in Lateral leads Confirmed by Vesta BACK JOHN ([id number]) on 10/25/2024 9:54:15 AM G[facility] 10/20/2024 12:4 9 PM EST 10/25/2024 9:54 AM EST Kavya Cohn MOTORCYCLE SUBASSEMBLER ECG ORDERABLES Edited Resul t - Final Performing Organization Address City/State/[facility] Co de Phone Number [facility] from Last 3 Months Insurance MEDICARE Care Teams Finisher [employer] Relationship Specialty Start Date End Date Paco Jordan MD [address] [place] [address] [address] [place] [address] PCP - General Internal Medicine 04/02/21
== END 2024-12-20 11:09 | disposition home or self-care (01) ==
PROVIDERS: PCP Internal Medicine; Visit Provider Internal Medicine
DX: E03.9 Hypothyroidism, unspecified (principal)

== ENCOUNTER → 2024-12-20 10:39 | Outpatient (BNVA) | payer MEDICARE, OTHER, SELFPAY | PROVIDERS: PCP Internal Medicine; Visit Provider Internal Medicine | DX: E03.9 Hypothyroidism, unspecified (principal) | CPT/HCPCS: 96127; 99212 ==

== ENCOUNTER 2025-01-10 08:08 | Outpatient (REF) | payer MEDICARE, OTHER, SELFPAY ==
--- OUTSIDE RECORDS SUMMARY | 2025-01-10 08:22 | XMS_ITS | Encounter Summary ---
Author Organization [employer] [facility] Address [address] [place] [address] [address] [place] [address] Care Team Providers Care Chairman & Chief Executive Officer Name Role Phone Unavailable Primary Care Provider Unavailabl e Encounter Details Date Type Department Care Team (Latest Contact Info) Description 06/12/2022 Abstract [facility] CONVERSIONS Dental, Provider, DDS Social History Tobacco [...] Description 03/10/2025 10:00 AM EDT Office Visit [facility] ADULT DENTAL [address] [place] [address] Lenore Bsihop documented as of this encounter Visit Diagnoses Not on filedocumented in this encounter
--- OUTSIDE RECORDS SUMMARY | 2025-01-10 08:23 | XMS_ITS | Clinical Summary ---
Author Organization [employer] [facility] Address [address] [facility] 7t [place] [address] Care Team Providers Care Senior Risk Manager Name Role Phone Unavailable Primary Care Provider [...] Type Department Care Team Description 11/07/2024 Telephone [facility] ADULT DENTAL [address] [place] [address] Edgar Larry 10/20/2024 2:30 PM EST Office Visit [facility] ADULT DENTAL [address] [place] [address] Case Pineda DDS 10/17/2024 Telephone [facility] ADULT DENTAL [address] [place] [address] Klaudia Finn DMD recement crown from Last 3 Months Social History Tobacco [...] Upcoming Encounters Date Type Department Care Team ([facility] st Contact Info) Description 03/10/2025 10:00 AM EDT Office Visit [facility] ADULT DENTAL [address] [place] [phone] Lenore Bishop Health Maintenance Due Date Last [...] PROCEDURE Routine 10/20/2024 2 :30 PM EST PROPHYLAXIS - ADULT Routine 09/09/2024 1 0:00 AM EDT BITEWINGS - 4 RADIOGRAPHIC IMAGES Routine 12/08/2023 11:00 AM EST PERIODIC ORAL EVALUATION - ESTABLISHED PATIENT Routine 12/08/2023 11:00 AM EST from Last 3 Months or Most Recently Relevant to Health Maintenance Insurance DENTAL - HSN FULL (MEDICAID)
--- OUTSIDE RECORDS SUMMARY | 2025-01-10 08:23 | XMS_ITS | Encounter Summary ---
Author Organization [employer] [facility] Address [address] [place] [address] [address] [place] [address] Care Team Providers Care Entertainment Production Professional Name Role Phone Unavailable Primary Care Provider Unavailabl e Reason for Visit * Reason Onset Date Comments recement crown 10/17/2024 Encounter Details Date Type Department Care Team (Late Contact Info) Description 10/17/2024 Telephone [facility] ADULT DENTAL [address] [place] [address] Klaudia Finn DMD recement crown Social History Tobacco Use Types [...] Description 03/10/2025 10:00 AM EDT Office Visit [facility] ADULT DENTAL [address] [place] [address] Lenore Bishop documented as of this encounter Visit Diagnoses Not on filedocumented in this encounter
--- OUTSIDE RECORDS SUMMARY | 2025-01-10 08:24 | XMS_ITS | Clinical Summary ---
Author Organization [address] [place] [address] [place] [phone] Phone Care Team Providers Care Retail District Manager Name Role Phone Paco [place] MD Primary Care Provider [phone] Allergies No known active allergies Medications acebutoloL [...] Type Department Care Team Description 11/22/2024 Telephone [facility] Cardiology [facility] [address] [place] [address] Steve Back MD medical records 11/14/2024 7:00 AM EST Ancillary Procedure [facility] Cardiology [facility] [address] [place] [address] Paroxysmal A-fib (CMS/HCC) 11/04/2024 Telephone [facility] Cardiology [facility] [address] [place] [address] Kavya Cohn NP Results (TSH) 10/28/2024 Telephone [facility] Cardiology [facility] [address] [facility] [address] [place] [phone] Kavya Cohn NP blood pressure self measured 10/26/2024 Telephone [facility] - [facility] [address] [facility] [address] [place] [phone] Steve Back MD Med Refill (Spironolactone 25mg daily/Refill sent to pharmacy 10/28/24 (sec)/) 10/21/2024 Telephone [facility] Cardiology [facility] - [facility] [address] [facility] [address] [place] [phone] Steve Back MD Removable Prosthodontist; ROCT - [id number] (Ok to Book); ROCT Enrollment (Enrolling patient for 30 day ROCT) 10/20/2024 12:40 PM EST Office Visit [facility] Cardiology [facility] [address] [facility] [address] [place] [phone] Kavya Cohn NP Paroxysmal A-fib (CMS/HCC) (Primary Dx) from Last 3 Months Surgical History Surgery Date Site/Laterality Comments HYSTERECTOMY PROCEDURE: HISTORICAL HYSTERECTOMY TONSILLECTOMY PROCEDURE: HISTORICAL TONSILLECTOMY OTHER SURGICAL HISTORY PROCEDURE: HISTORY OTHER; COMMENT: radioactive I2 treatment for hyperthyroidism Medical History Medical History Date Comments Essential hypertension 07/04/2021 DX:Essent ial hypertension Hyperlipidemia 07/04/2021 DX:Hyperlipidemi a Paroxysmal A-fib (CMS/HCC) 07/04/2021 DX:Pa roxysmal A-fib ([facility]) Glaucoma 07/04/2021 DX:Glaucoma History of shingles 07/04/2021 [...] Years (1 of 1 - PCV) 1997 RSV Immunization Patients 60+ Years Old (1 - 1-dose 75+ series) 2022 Cholesterol Screening (Lipid Panel) 10/07/2022 Depression Screening 10/07/2022 Falls Risk Assessment 10/07/2022 Hepatitis C Screening 10/07/2022 Medicare Annual Wellness Visit 10/07/2022 Osteoporosis Screening (Bone Density Screening) 10/07/2022 Social Influencers of Health Screening 10/07/2022 DTaP,Tdap,and Td Vaccines (2 - Td or Tdap) 10/20/2024 10/20/2014 Hypertension/CHF/CAD Annual BMP Blood Test 10/28/2025 10/28/2024, [...] Name Priority Date/Time Associated Diagnosis Comments CARDIAC CLIENT SERVICES REPRESENTATIVE W/ CONNECTION (MCOT) Routine 11/15/2024 6:42 AM [...] from Last 3 Months Results * CARDIAC CLIENT SERVICES REPRESENTATIVE W/ CONNECTION (MCOT) (11/15/2024 6:42 AM EST) [...] PVCs. ??No documented atrial or ventricular arrhythmias. [facility] DIAGNOSTIC TESTING DEPARTMENT [address] [facility], [id number], [place] [address] TEL: FAX: TYPE OF TEST 30 day [...] LAB CHEMISTRY METHOD 10/28/2024 9:48 AM EST [facility] ([facility] Blood Venous blood specimen / Unknown Venipuncture / Unknown 10/28/2024 8:06 AM EST 10/28/2024 9:03 AM EST us Kavya Cohn GEAR TECHNICIAN LAB BLOOD ORDERABLES Final R esult Performing Organization Address City/[facility]/ZIP Co de Phone Number [facility] [address] [place] [address], [place] [phone] * Free thyroxine with reflex to free triiodothyronine (10/28/2024 8:06 AM EST) Free T4 1.77 0.70 - 1.80 ng/dL LAB CHEMISTRY METHOD 10/28/2024 10:14 AM EST [facility] Blood Venous blood specimen / Unknown Venipuncture / Unknown 10/28/2024 8:06 AM EST 10/28/2024 9:03 AM EST us Kavya Cohn GEAR TECHNICIAN LAB BLOOD ORDERABLES Final R esult Performing Organization Address City/[facility] Co de Phone Number [facility] [address] [place] [address], [place] [phone] * Triiodothyronine free (10/28/2024 8:06 AM EST) T3, Free 252 230 - 420 pcg/dL LAB CHEMISTRY METHOD 10/28/2024 10:42 AM EST [facility] Blood Venous blood specimen / Unknown Venipuncture / Unknown 10/28/2024 8:06 AM EST 10/28/2024 9:03 AM EST Kavya Cohn GEAR TECHNICIAN LAB BLOOD ORDERABLES Final R esult Performing Organization Address City/[facility]/ZIP Co de Phone Number [facility] [address] [place] [address], [place] [phone] * Magnesium (10/28/2024 8:06 AM EST) Magnesium 1.9 1.9 - 2.6 mg/dL LAB CHEMISTRY METHOD 10/28/2024 9:36 AM [facility] Blood Venous blood specimen / Unknown Venipuncture / Unknown 10/28/2024 8:06 AM EST 10/28/2024 9:03 AM EST us Kavya Cohn GEAR TECHNICIAN LAB BLOOD ORDERABLES Final R esult [facility] [address] [place] [address], * (ABNORMAL) Basic metabolic panel (10/28/2024 8:06 AM EST) Sodium 127(L) 133 - 145 mmol/L LAB CHEMISTRY METHOD 10/28/2024 9:36 AM [facility] Potassium 4.6 3.5 - 5.5 mmol/L LAB CHEMISTRY METHOD 10/28/2024 9:36 AM [facility] Chloride 94(L) 96 - 110 mmol/L LAB CHEMISTRY METHOD 10/28/2024 9:36 AM [facility] CO2 27 21 - 32 mmol/L LAB CHEMISTRY METHOD 10/28/2024 9:36 AM [facility] Anion Gap 6 3 - 11 LAB CHEMISTRY METHOD 10/28/2024 9:36 AM [facility] Glucose 98 70 - 100 mg/dL LAB CHEMISTRY METHOD 10/28/2024 9:36 AM [facility] BUN 13 5 - 25 mg/dL LAB CHEMISTRY METHOD 10/28/2024 9:36 AM [facility] Creatinine 0.82 0.50 - 1.10 mg/dL LAB CHEMISTRY METHOD 10/28/2024 9:36 AM [facility] eGFR 74 >=60 mL/min/1. 73m2 LAB CHEMISTRY METHOD 10/28/2024 9:36 AM [facility] Comment:Calculation based on the??Chronic Kidney Disease Epidemiology Collaboration (CKD-EPI) equation refit??without adjustment for race. BUN/Creatinine Ratio 15.9 LAB CHEMISTRY METHOD 10/28/2024 9:36 AM EST [facility] Calcium 9.5 8.5 - 10.5 mg/dL LAB CHEMISTRY METHOD 10/28/2024 9:36 AM EST [facility] Blood Venous blood specimen / Unknown Venipuncture / Unknown 10/28/2024 8:06 AM EST 10/28/2024 9:03 AM EST Kavya Cohn GEAR TECHNICIAN LAB BLOOD ORDERABLES Final R esult Performing Organization Address City/[facility]/ZIP Co de Phone Number [facility] ([facility]) [facility] [address] [place] [address], [place] [phone] * ECG 12 lead (10/25/2024 8:57 AM EST) Ventricular Rate ECG 59 BPM GEMUSE Atrial Rate 59 BPM GEMUSE P-R Interval 132 ms GEMUSE QRS Duration 84 ms GEMUSE Q-T Interval 414 ms GEMUSE QTc 409 ms GEMUSE P Wave Dalhart 85 degrees GEMUSE R Dalhart 61 degrees GEMUSE T Dalhart 131 degrees GEMUSE ECG Interpretation Sinus bradycardia with sinus arrhythmia ST and T wave abnormality, consider lateral ischemia Abnormal ECG When compared with ECG of 18-JUN-1999 03:08, T wave inversion now evident in Lateral leads Confirmed by Vesta BACK JOHN ([id number]) on 10/25/2024 9:54:15 AM GEMUSE 10/20/2024 12:4 9 PM EST 10/25/2024 9:54 AM EST Kavya Cohn GEAR TECHNICIAN ECG ORDERABLES Edited Resul t - Final Performing Organization Address City/State/[facility] Co de Phone Number GEMUSE from Last [place] [address] MEDICARE Care Teams Retail District Manager Relationship Specialty Start Date End Date Paco [place] MD [address] [place] [address] [address] [place] [address] PCP - General Internal Medicine 04/02/21
--- OUTSIDE RECORDS SUMMARY | 2025-01-10 08:24 | XMS_ITS | Encounter Summary ---
Author Organization [facility] Address [address] [place] [phone] Care Team Providers Care Strategic Partnership Manager Name Role Phone Paco [place] MD Primary Care Provider [phone] Reason for Visit * Reason Onset Date Comments medical records 11/22/2024 Encounter Details Date Type Department Care Team ([facility] st Contact Info) Description 11/22/2024 Telephone [facility] [address] [facility] [address] [place] [address] Steve Back MD [address] [place] [address] medical records Social History Tobacco Use Types [...] of this encounter Progress Notes * Haven Pintoes - 11/22/2024 3:02 PM EST Medical Records Request Caller: Patients Calling from: Primary care provider Requesting provider's first & last name: Dr. Paco [place], please put attention Dr. Samuels as Dr. [place] is out of the office today. Direct Phone Number or Ext: [phone] What records are being requested: labs How far back: 10/28/24 What is it for: provider review Needed by: [facility] Beverly would like a call back once these are sent, she can be reached at [phone]. documented in this encounter Plan of Treatment Not on file documented as of this encounter Visit Diagnoses Not on filedocumented in this encounter Care Teams Strategic Partnership Manager Relationship Specialty Start Date End Date Paco [place] MD [address] [facility] [address] [place] [address] PCP - General Internal Medicine 04/02/21 documented as of this encounter
--- OUTSIDE RECORDS SUMMARY | 2025-01-10 08:24 | XMS_ITS | Encounter Summary ---
Author Organization [facility] Address [address] [facility] [address] [place] [address] Care Team Providers Care Splicer Helper Name Role Phone Unavailable Primary Care Provider Unavailabl e Encounter Details Date Type Department Care Team (Late Contact Info) Description 01/08/2023 Telephone [facility] [address] [place], [place] [phone] Jack Hatfield [address] [place], [place] [phone] Social History Tobacco Use Types Packs/Day Years [...] Description 03/10/2025 10:00 AM EDT Office Visit [facility] [address] [place] [address] Lenore Bishop documented as of this encounter Visit Diagnoses Not on filedocumented in this encounter
[2025-01-10 09:54] LABS: Alanine Aminotransferase 29 U/L (0-31); Alkaline Phosphatase 74 U/L (39-117); Anion Gap 12 (12-20); Aspartate Amino Transferase 28 U/L (5-31); Bilirubin Total 0.7 mg/dL (0.0-1.0); Blood Urea Nitrogen 18 mg/dL (9-16); Calcium 9.5 mg/dL (8.4-10.2); Carbon Dioxide 26 mmol/L (22-29); Chloride 102 mmol/L (96-108); Estimated Glomerular Filt Rate > 60; Glucose Random 106 mg/dL (60-115); Potassium 5.1 mmol/L (3.3-5.1); Sodium 135 mmol/L (135-145)
[2025-01-10 10:10] LABS: Free T4 (Free Thyroxine) 1.41 ng/dL (0.71-1.85); Thyroid Stimulating Hormone 0.11 uIU/mL (0.32-4.0)
== END 2025-01-10 08:09 | disposition home or self-care (01) ==
LOC: HO.LAB 08:08
PROVIDERS: PCP Internal Medicine; Visit Provider Internal Medicine
DX: E03.9 Hypothyroidism, unspecified (principal)
CPT/HCPCS: 36415; 80053; 84439; 84443

== ENCOUNTER 2025-03-23 10:45 | Outpatient (AMB) | payer MEDICARE, SELFPAY ==
[2025-03-23 11:13] VITALS: BP 160/90; PULSE 68; O2SAT 96; BMI 23.1
--- NOTE | 2025-03-23 11:13 | A.OFFPC_ITS ---
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 Accompanied by: Self / Same As Patient Allergies No Known Allergies Allergy (Verified 03/23/25 11:50) Medication List - Last Reconciled 03/23/25 by Leonidas Betancourt MD acebutolol 200 mg PO BID atorvastatin 5 mg (1/2 x 10 mg) PO DAILY cholecalciferol (vitamin D3) 25 mcg PO DAILY latanoprost 0.005% 1 drp ophthalmic (eye) BEDTIME levothyroxine 75 mcg PO DAILY levothyroxine 50 mcg PO DAILY losartan 100 mg PO DAILY oxycodone 5 mg PO Q8H PRN 30 days spironolactone 25 mg PO DAILY tramadol 50 mg PO Q6H PRN Tobacco use date assessed: 03/23/25 Fall risk assessment: 1 Fall in past year Last assessed Fall Risk: 03/23/25 Dental Screening Dental Screen Date: 03/23/25 Did you have a dental visit in the last 12 months?: Yes Did you have a dental problem in the last 6 months where you did not have access to dental care?: No Was dental information given to patient?: Patient has dentist HPI CARLOS From Dr. [place] 3m f/u HPI Details Patient comes in today for her follow up visit - is transferring over from Dr. [place], who retired from the practice a couple of months ago Patient states that she feels okay States that she has white coat syndrome and that her blood pressure readings are usually much better at home than her readings at the doctor's office She has reportedly been worked up by Dr. Licona for her high blood pressure readings with ambulatory BP monitor years ago and she has been advised that all of her tests came back normal She brought in several BP readings from home today, with BP readings of 133/78, 118/71, 117/67, 120/76. 135/80, 136/78, 112/65, among others Reports that she has (+) Hx of L1 vertebral compression Fx and states that her low back pain has been mostly manageable over the years but she is presently unable to tolerate sitting for long period of time and has to get up and move around after a while to keep her lower back from tightening up completely - feels that her low back pain has gotten worse lately She denies any recent injury or trauma to her lower back She denies any headaches or dizziness Denies any chest pains, no increased shortness of breath No nausea/vomiting, no abdominal pain No change in bowel habits noted She has no follow-up labs done recently [facility] Medical History (Updated 03/25/25 @ 04:52 by Leonidas Betancourt MD) Paroxysmal atrial fibrillation Vitamin D deficiency Pure hypercholesterolemia Acquired hypothyroidism Pure hypercholesterolemia with target low density lipoprotein (LDL) cholesterol less than 130 mg/dL Essential hypertension Atrial fibrillation Somatic dysfunction of right sacroiliac joint Right knee pain Surgical History History of colonoscopy History of surgery H/O total hysterectomy Family History Father CAD (coronary artery disease) Mother CAD (coronary artery disease) Social History Housing: House Alcohol intake: current Alcohol intake frequency: 0-2 drinks per day Alcohol type: beer and wine Patient Tobacco Use Status: Never used Tobacco e-Cigarette/Vaping Use: Never Used Second Hand Smoke Exposure: No service: No 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 1. Little interest or pleasure in doing things: not at all 2. Feeling down, depressed, or hopeless: not at all 3. Trouble falling or staying asleep, or sleeping too much: not at all 4. Feeling tired or having little energy: not at all 5. Poor appetite or overeating: not at all 6. Feeling bad about yourself - or that you are a failure or have let yourself or your family down: not at all 7. Trouble concentrating on things, such as reading the newspaper or watching television: not at all 8. Moving or speaking so slowly that other people could have noticed. Or the opposite - being so fidgety or restless that you have been moving around a lot more than usual: not at all 9. Thoughts that you would be better off or of hurting yourself in some way: not at all Total score: 0 Depression Screening Interpretation: Negative Depression Screening Done: Yes 61581 - PHQ-9 Billing: Yes Source: Developed by Drs. Sagar Haile, Pricilla Hatfield, Silviano Bojorquez and colleagues, with an educational ena from [employer]. Thrive Questionnaire Date Thrive assessed: 03/23/25 I am a: Patient What is your living situation today?: I have a steady place to live Within the past 12 months, did the food you bought not last and you didn't have the money to get more?: Never true Within the past 12 months, did you worry whether your food would run out before you got money to buy more?: Never true Do you have trouble paying for medicines?: Yes Do you have trouble getting transportation to medical appointments?: No Do you have trouble paying your heating and electricity bill?: No Do you have trouble taking care of your child, family member or friend?: No Do you have trouble with day-to-day activities such as bathing, preparing meals, shopping, managing finances, etc.?: No Are you currently unemployed and looking for a job?: No Are you interested in more education?: No Please select the resources that you would like help with: None Currently or been in a relationship where the following occur: No concerns reported THRIVE Score: 0 AUDIT C Alcohol Use Questionnaire (AUDIT-C) 2. How many drinks containing alcohol do you have on a typical day when you are drinking?: 5 or 6 Total Score: 2 Score Reviewed/Action Taken: Yes VENANCIO-7 AMB Questionnaire VENANCIO-7 Date VENANCIO - 7 assessed: 03/23/25 Feeling nervous, anxious, or on edge: 0 = Not at all Not being able to stop or control worryin = Not at all Worrying too much about different things: 0 = Not at all Trouble relaxin = Not at all Being so restless that it is hard to sit still: 0 = Not at all Becoming easily annoyed or irritable: 0 = Not at all Feeling afraid as if something awful might happen: 0 = Not at all Total VENANCIO-7 score (0-4 normal; 5-9 mild; 10-14 moderate; 15-21 severe): 0 Source: Developed by Drs. Sagar Haile, Pricilla Hatfield, Silviano Bojorquez and colleagues, with an educational ena from [employer]. Review of Systems Const Denies chills, Denies fatigue, Denies fever(s) and Denies headache(s) ENT Denies dysphagia, Denies dizziness, Denies otalgia, Denies headache(s), Denies neck pain, Denies odynophagia and Denies sore throat Card Denies chest pain, Denies palpitations and Denies dyspnea Resp Denies chest congestion, Denies cough and Denies dyspnea GI Denies abdominal pain, Denies constipation, Denies dysphagia, Denies heartburn, Denies diarrhea, Denies nausea, Denies odynophagia and Denies vomiting Denies difficulty voiding, Denies nocturia, Denies dysuria and Denies urinary urgency Musc Reports back pain (over the lower back - increasing lately - see HPI) and Denies neck pain Skin/Breast Denies rash Neuro Denies dizziness and Denies headache(s) Endo Denies fatigue and Denies palpitations Bhanu/Lymph Denies easy bruising Physical exam (Primary Care) Vital Signs: Last Vital Signs Pulse 68 03/23/25 11:13 BP 160/90 H 03/23/25 11:13 Pulse Ox 96 03/23/25 11:13 Oxygen Delivery Method Room Air 03/23/25 11:13 BMI result Body Mass Index 23.1 Tobacco/Smoking Status: Tobacco use Status Tobacco use date assessed 03/23/25 03/23/25 11:16 Patient Tobacco Use Status Never used Tobacco 03/23/25 11:16 e-Cigarette/Vaping Use Never Used 03/23/25 11:16 PHQ-9: PHQ-9 Score PHQ-9: Total score 0 03/23/25 11:52 Depression Screening Interpretation: Negative Thrive Assessment: Date of Thrive Assessment Date Thrive assessed 03/23/25 03/23/25 11:16 Currently or been in a relationship where the following occur: No concerns reported Const General: no acute distress and alert HENMT Ears: TM's normal bilaterally and EAC's normal Throat: Yes posterior oropharynx normal and Yes tonsils normal (no TP congestion) Neck Neck: Yes supple and No lymphadenopathy Thyroid: Thyroid normal Resp Auscultation: clear to auscultation bilaterally, no rales and no wheezes Cardio Rate: regular rate Rhythm: regular rhythm Heart sounds: no murmurs GI Palpation (GI): Soft to palpation and nontender Auscultation: normal bowel sounds General: Yes no CVA tenderness Back/Spine/Pelvis Back: no CVA tenderness Thoracic/Lumbar Spine: lumbar spinal tenderness (increased lately) Skin Rashes: no rashes Extrem General: Yes no clubbing, cyanosis or edema Coding Level of Care Code Est Pt Level 4 (38463) Complex EM visit Add On G2211 Diagnoses Essential hypertension I10 Pure hypercholesterolemia E78.00 Paroxysmal atrial fibrillation I48.0 Acquired hypothyroidism E03.9 Compression fracture of L1 vertebra, sequela S32.010S Encounter type: sequela Lumbar vertebra fracture level: L1 Vitamin D deficiency E55.9 Additional Codes PHQ-9 - 09595 - PHQ-9 Billing: Yes ([id number]) Assessment & Plan Assessment & Plan (1) Essential hypertension: Code(s): I10 - Essential (primary) hypertension Category: Medical Plan: Reinforced low sodium diet - goal is systolic BP of 120 to 130 mm or less Patient does appear to have component of white-coat syndrome as her blood pressure goes up significantly when it is checked here in the office Her BP log brought in today reveals excellent BP control consistently whenever her BP is checked at home Continue Losartan 100 mg QD, Spironolactone 25 mg QD; she is also on Acebutolol 200 mg BID but that is more to control her heart rate and minimize recurrence of her previous symptoms of palpitations (2) Pure hypercholesterolemia: Code(s): E78.00 - Pure hypercholesterolemia, unspecified Category: Medical Plan: As she has not had any follow up labs done in a while, will have patient go and get these done ZULY Reinforced low cholesterol diet Continue Atorvastatin 5 mg QD Will recheck her labs and fasting lipids again in 3 months for follow up (3) Paroxysmal atrial fibrillation: Code(s): I48.0 - Paroxysmal atrial fibrillation Category: Medical Plan: Patient reportedly has several brief episodes of atrial fibrillation documented on loop recorder back on 2017 but has had no recurrence since She has a CHADsVasc score of 3 but as she has not had any further recurrence since 2017, she has not been on any thromboembolism prophylaxis Continue Acebutolol 200 mg BID She was on Aspirin 81 mg QD but also appears to have stopped taking it a while ago Follow up with cardiology as scheduled (4) Acquired hypothyroidism: Code(s): E03.9 - Hypothyroidism, unspecified Category: Medical Plan: Continue Levothyroxine 50 mcg QD Will recheck her TFTs in 3 months for follow up (5) Lumbar compression fracture: Code(s): S32.000A - Wedge compression fracture of unspecified lumbar vertebra, initial encounter for closed fracture Category: Medical Qualifiers: Encounter type: sequela Lumbar vertebra fracture level: L1 Qualified Code(s): S32.010S - Wedge compression fracture of first lumbar vertebra, sequela Plan: Reinforced activity and weight-lifting restrictions to avoid aggravating her low back pain Continue Tramadol 50 mg TID PRN for pain for now She reports that she has (+) L1 vertebral compression Fx and that her low back pain has been mostly manageable over the years but she is presently unable to tolerate sitting for long period of time and has to get up and move around after a while to keep her lower back from tightening up completely - feels that her low back pain has gotten worse lately As she has been seen by Dr. Vitale a while back, she would like to get a referral to see Dr. Vitale for her increasing low back pain - referral placed (6) Vitamin D deficiency: Code(s): E55.9 - Vitamin D deficiency, unspecified Category: Medical Plan: Continue Vitamin D3 2000 units QD Plan Follow up in 3 months Orders: Orders Comprehensive Met. Panel 03/23/25 E03.9 - Hypothyroidism, unspecified Complete Blood Count Auto Diff 03/23/25 D64.9 - Anemia, unspecified, E03.9 - Hypothyroidism, unspecified Free T4 (Free Thyroxine) 03/23/25 E03.9 - Hypothyroidism, unspecified Complete Blood Count Auto Diff 3 Months D64.9 - Anemia, unspecified Comprehensive [place]. Panel Fast 3 Months E78.00 - Pure hypercholesterolemia, unspecified Free T4 (Free Thyroxine) 3 Months E03.9 - Hypothyroidism, unspecified Thyroid Stimulating Hormone 3 Months E03.9 - Hypothyroidism, unspecified UA CC w/rflx Micro + Cult 3 Months R30.0 - Dysuria Thyroid Stimulating Hormone 03/23/25 E03.9 - Hypothyroidism, unspecified Lipid Panel 3 Months E78.00 - Pure hypercholesterolemia, unspecified Vitamin D 25-OH Total 3 Months E55.9 - Vitamin D deficiency, unspecified Referrals Neurosurgery Referral S32.000A - Wedge compression fracture of unspecified lumbar vertebra, initial encounter for closed fracture
--- OUTSIDE RECORDS SUMMARY | 2025-03-23 11:52 | XMS_ITS | Encounter Summary ---
Author Organization [employer] [facility] Address [address] [place] [address] 7t [place] [address] Care Team Providers Care Channel Executive Name Role Phone Unavailable Primary Care Provider Unavailabl e Encounter Details Date Type Department Care Team (Late st Contact Info) Description 01/08/2023 Telephone [facility] ADULT DENTAL [address] [place], [place] [phone] Jack Hatfield [address] [place] [address] Social History Tobacco Use Types Packs/Day Years [...] Care Team (Late st Contact Info) Description 05/05/2025 10:30 AM EDT Office Visit [facility] ADULT DENTAL [address] [place] [address] Case Pineda DDS [address] [place] [address] 09/22/2025 8:00 AM EST Office Visit [facility] ADULT DENT[facility] [address], [place] [phone] Lenore Bishop documented as of this encounter Visit Diagnoses Not on filedocumented in this encounter
--- OUTSIDE RECORDS SUMMARY | 2025-03-23 11:52 | XMS_ITS | Encounter Summary ---
Author Organization [employer] [facility] Address [address] [facility] 7t [place] [address] Care Team Providers Care Marine Drafter Name Role Phone Unavailable Primary Care Provider Unavailabl e Reason for Visit * Reason Comments Routine Cleaning Dental Exam Encounter Details Date Type Department Care Team (Late st Contact Info) Description 03/20/2025 8:00 AM EDT Office Visit [facility] ADULT DENTAL [address] [place] [address] Lenore Bishop Social History Tobacco Use Types Packs/Day Years [...] AM EDT documented as of this encounter Last Filed Vital Signs Vital Sign Reading Time Taken Comments Blood Pressure 144/86 03/20/2025 8:07 AM EDT Pulse - - Temperature - - Respiratory Rate - - Oxygen Saturation - - Inhaled Oxygen Concentration - - Weight - - Height - - Body Mass Index - - documented in this encounter Progress Notes * Lenore Bishop - 03/20/2025 8:00 AM EDT Patient ID: Beverly Paulino is a 80 y.o. female. Time Out: Timeout Date: 03/20/25, Timeout Time: 0809 Location: [facility] Tooth: Maxilla and Mandible Procedure: Exam, X-rays, and Prophylaxis Verified the above with patient, rn first assistant, and provider. Confirmed via patient's chart, intraorally and by radiographs. Process Worker: not applicable Medical Hx: Vitals: Blood pressure (!) 144/86. Medications, Med Hx reviewed with patient and updated in chart. Treatment Provided Dental procedures in this visit D1110 - PROPHYLAXIS - ADULT (Completed) Service provider: Lenore Dockery provider: Antony Ngo DMD [id number] - CASE PRESENTATION, DETAILED AND EXTENSIVE TREATMENT PLANNING (Completed) Service provider: Lenore Bishop Billfreddy provider: Antony Ngo DMD [id number] - ORAL HYGIENE INSTRUCTIONS (Completed) Service provider: Lenore Bishop Billfreddy provider: Antony Ngo DMD [id number] - BITEWINGS - 3 RADIOGRAPHIC IMAGES (Completed) Service provider: Lenore Bishop Billfreddy provider: Antony Ngo DMD [id number] - INTRAORAL - PERIAPICAL FIRST RADIOGRAPHIC IMAGE (Completed) Service provider: Lenore Bishop Billfreddy provider: Antony Ngo DMD [id number] - INTRAORAL - PERIAPICAL EACH ADDITIONAL RADIOGRAPHIC IMAGE (Completed) Service provider: Lenore Bishop Billfreddy provider: Antony Ngo DMD Instruments Used: Ultrasonic Scalers, Hand Scalers, and Prophy angle Fluoride: N/A Oral Cancer Screening: No lesions Head/Neck Exam: No Lesions Calculus: Light and Localized Plaque: Light and Generalized Stain: None Bleeding: Light and Localized Gingiva: Healthy, Perio Charting Completed, Bleeding on probing, and Recession- localized OH: Good Perio Chart: Completed Dental exam done by Dr. Finn. Oral hygiene instructions provided to patient including brushing technique and flossing. Recommendations: Altus two times daily, modified crane technique, Floss daily, Electric toothbrush, Soft bristle toothbrush, Altus Tongue, Anti-sensitivity toothpaste Recall Frequency: 6 mo NV: Restorations Hygienist: Lenore Bishop RDH * Klaudia Finn DMD - 03/20/2025 8:00 AM EDT Dental procedures in this visit D1110 - PROPHYLAXIS - ADULT (Completed) Service provider: Lenore Dockery provider: Antony Ngo DMD [id number] - CASE PRESENTATION, DETAILED AND EXTENSIVE TREATMENT PLANNING (Completed) Service provider: Lenore Bishop Billfreddy provider: Antony Ngo DMD [id number] - ORAL HYGIENE INSTRUCTIONS (Completed) Service provider: Lenore Bishop Billing provider: Antony Ngo DMD D0273 - BITEWINGS - 3 RADIOGRAPHIC IMAGES (Completed) Service provider: Lenore Bishop Billing provider: Antony Ngo DMD [id number] - INTRAORAL - PERIAPICAL FIRST RADIOGRAPHIC IMAGE (Completed) Service provider: Lenore Bishop Billing provider: Antony Ngo DMD [id number] - INTRAORAL - PERIAPICAL EACH ADDITIONAL RADIOGRAPHIC IMAGE (Completed) Service provider: Lenore Bishop Billing provider: Antony Ngo DMD D0120 - PERIODIC ORAL EVALUATION - ESTABLISHED PATIENT (Completed) Service provider: Klaudia Finn DMD Billing provider: Antony Ngo DMD Patient ID: Beverly Paulino is a 80 y.o. female. Time Out: Date: 03/20/2025 Location: [facility] Tooth: Maxilla and Mandible Procedure: Exam and X-rays Verified the above with patient, rn first assistant, and provider. Confirmed via patient's chart, intraorally and by radiographs. Process Worker: not applicable 80 y.o. year old female patient presents to clinic for a Comprehensive exam completed by Dr. Klaudia Finn DMD CONSENT FORM INITIALED & SIGNED BY THE PATIENT AND COUNTERSIGNED BY Dr. Klaudia Finn DMD Chief Complaint: I am due for an exam. NELSON LAGOON: Pain: None Duration: N/A Scale of pain from 1 - 10: N/A Aggravating factors: N/A Pain radiating: N/A Postural variation: N/A Medical history: Reviewed in EHR, pt. reports no changes in medical history Medical consult/Medical clearance: None Vital signs: BP - 144/86 Allergies: reviewed in EHR, NKDA Medications: Reviewed in EHR ASA- II Habits Bruxism: WNL Smoking: None reported Drinking: None reported Brushinx/day Flossinx/day Last dental visit: February 2025 - Dr. Pineda Cancer screening Extra-oral - No palpable lymph nodes or lymph adenopathies. No facial asymmetries. No extraoral swelling or erythematous lesions. Intraoral - Buccal mucosa, gingiva, floor and roof of the mouth, pharynx, and all surfaces of the tongue pink and normal. No erythematous lesions or intraoral swellings. Extra-oral examination TMJ Deviation - None Clicking - None Tenderness - None Facial symmetry - None Cheeks - No asymmetry Lymph nodes - No swollen lymph nodes Intraoral examination Soft tissues - [place] and Normal Palate - [place] and Normal Tongue - [place] and Normal Buccal mucosa - [place] and Normal Floor of mouth - [place] and Normal Vestibules - [place] and Normal Lips - [place] and Normal Glands - [place] and Normal Duct area - [place] and Normal Oropharynx - [place] and Normal Gingiva Color - [place] and Normal Contour - Blunted Recession - Yes, generalized Consistency - Spongy Texture - Stippled Bleeding on probing - Yes, see perio chart Oral hygiene - Poor Occlusion Overbite (mm): 2 mm Overjet (mm): 2 mm Diastema: None Right Molar Occlusion: N/A Left Molar Occlusion: N/A Right Canine Occlusion: Class I Left Canine Occlusion: Class I Midline: Coincident Anterior/Posterior crossbite: None Arches: WNL Wear Facets: WNL Radiographs Full mouth series taken on: BW and PA taken today Quality are of diagnostic value and appropriate for radiographic analysis: Yes X-ray retake: None RADIOGRAPHIC FINDINGS Radiolucency: None Thickened PDL: None Increased Lamina Dura: None Root Resorption Internal/External: None Abnormal Root formation: None Horizontal Bone Resorption: Yes, generalized Vertical Bone Resorption: Yes, generalized Other Bone Pathosis: None Periodontal exam Periodontal diagnosis: Stage II Grade B PSR or full pocket depths recorded: Perio charting performed today by hygienist Hard tissue exam Missing - 1, 13, 16, 17, 19, 29-32 Decayed - #20 D, #21 B cervical caries present Gingiva - WNL Calculus - WNL Fractured - None Mobility - None Treatment discussion Findings, risks, benefits and alternatives discussed with patient. Reviewed radiographs with patient. Pointed out areas of radiographic calculus. Discussed sequelae of bacteria on gingiva and underlying bone. Recommended prophy, OHI, restorative, EXTs and partial dentures. Advised increased frequency of brushing and flossing. Caries planned for hinduism. Patient to be seen at Prosth specialist ( see notes from Dr. Pineda February 2025). Patient understands tooth #10 is non-restorable and that the temporary crown re- cementation performed is not a residential solution. Patient to contact [facility] for further appointments after meeting with specialist. Tooth #20 caries extensive and beyond the level of the bone. Recommended to EXT prior to any partial fabrication. Treatment sequencing explained to patient. Patient understands and receptive to treatment. Treatment plan: Phase 1 - OHI, Prophy, EXT Phase 2 - Restorative Phase 3 - Prosth Phase 4 - Recare Referral to specialist outside of the clinical site: [place] All patient questions answered. Patient comfortable upon dismissal. NV: Restorative Provider: Dr. Klaudia Finn DMD Supervising Dentist: Dr. Antony Ngo DMD Cosigned by Antony Ngo DMD at 03/21/2025 8:58 AM EDT Associated attestation - Antony Ngo DMD - 03/21/2025 8:58 AM EDT I have reviewed the documentation and dental procedures made by the rendering provider, Klaudia Finn DMD, and approve their chart entries for this visit. Antony Ngo DMD documented in this encounter Plan of Treatment Upcoming Encounters Date Type Department Care Team (Late st Contact Info) Description 05/05/2025 10:30 AM EDT Office Visit [facility] ADULT DENTAL [address] [place] [address] Case Pineda DDS [address] [place] [address] 09/22/2025 8:00 AM EST Office Visit [facility] ADULT DENTAL [address] [place] [address] Lenore Bishop Scheduled Orders Name Type Priority Associated Diagnoses Orde r Schedule PROPHYLAXIS - ADULT Dental Routine 1 Occ urrences starting 03/20/2025 ORAL HYGIENE INSTRUCTIONS Dental Routine 1 Occurrences starting 03/20/2025 CASE PRESENTATION, DETAILED AND EXTENSIVE TREATMENT PLANNING Dental Routine 1 Occurrences starting 03/20/2025 PERIODIC ORAL EVALUATION - ESTABLISHED PATIENT Dental Routine 1 Occurren alphonso starting 03/20/2025 20 20 EXTRACTION, ERUPTED TOOTH OR EXPOSED ROOT (ELEVATION/FORCEPS REMOVAL) Dental Routine [address] arting 03/20/2025 21 B(V) 21 B(V) RESIN-BASED COMPOSITE - 1 SURF, POSTERIOR Dental Routine [address] arting 03/20/2025 19,20,29,30,31 19,20,29,30,31 MANDIBULAR PARTIAL DENTURE - RESIN BASE (INCLUDING, RETENTIVE/CLASPING MATERIALS, RESTS, AND TEETH) Dental Routine [address] arting 03/20/2025 10 10 EXTRACTION, ERUPTED TOOTH OR EXPOSED ROOT (ELEVATION/FORCEPS REMOVAL) Dental Routine [address] arting 03/20/2025 documented as of this encounter Procedures Procedure Name Priority Date/Time Associated Diagnosis Comments PROPHYLAXIS - ADULT Routine 03/20/2025 8 :00 AM EDT PERIODIC ORAL EVALUATION - ESTABLISHED PATIENT Routine 03/20/2025 8:00 AM EDT ORAL HYGIENE INSTRUCTIONS Routine 2024 8:00 AM EDT INTRAORAL - PERIAPICAL FIRST RADIOGRAPHIC IMAGE Routine 03/20/2025 8:00 AM EDT INTRAORAL - PERIAPICAL EACH ADDITIONAL RADIOGRAPHIC IMAGE Routine 03/20/2025 8:00 AM EDT CASE PRESENTATION, DETAILED AND EXTENSIVE TREATMENT PLANNING Routine 03/20/2025 8:00 AM EDT BITEWINGS - 3 RADIOGRAPHIC IMAGES Routine 03/20/2025 8:00 AM EDT documented in this encounter Visit Diagnoses Not on filedocumented in this encounter
--- OUTSIDE RECORDS SUMMARY | 2025-03-23 11:52 | XMS_ITS | Encounter Summary ---
Author Organization [employer] [facility] Address [address] [facility] 7 [place] [address] Care Team Providers Care Diamond Sizer And Sorter Name Role Phone Unavailable Primary Care Provider Unavailabl e Encounter Details Date Type Department Care Team (Latest Contact Info) Description 06/12/2022 Abstract [facility] CONVERSIONS Dental, Provider, DDS Social History Tobacco [...] Description 05/05/2025 10:30 AM EDT Office Visit [facility] ADULT DENTAL [address] [place] [address] Case Pineda, DDS [address] [place] [address] 09/22/2025 8:00 AM EST Office Visit [facility] ADULT DENTAL [address] [place] [address] Lenore Bishop documented as of this encounter Visit Diagnoses Not on filedocumented in this encounter
--- OUTSIDE RECORDS SUMMARY | 2025-03-23 11:53 | XMS_ITS | Encounter Summary ---
Author Organization [employer] Address [address] [facility] 7t [place] [address] Care Team Providers Care Child Support Case Officer Name Role Phone Unavailable Primary Care Provider Unavailabl e Reason for Visit * Reason Onset Date Comments recement crown 10/17/2024 Encounter Details Date Type Department Care Team (Late Contact Info) Description 10/17/2024 Telephone [facility] ADULT DENTAL [address] [place] [address] Klaudia Finn DMD recement crown Social History [...] Department Care Team (Late Contact Info) Description 05/05/2025 10:30 AM EDT Office Visit [facility] ADULT DENTAL [address] [place] [address] Case Pineda DDS [address] [place] [address] 09/22/2025 8:00 AM EST Office Visit [facility] ADULT DENTAL [address] [place] [address] Lenore Bishop documented as of this encounter Visit Diagnoses Not on filedocumented in this encounter
--- OUTSIDE RECORDS SUMMARY | 2025-03-23 11:53 | XMS_ITS | Clinical Summary ---
Author Organization [address] [place] [address] [place] [phone] Phone Care Team Providers Care Home Appraiser Name Role Phone Paco Jordan MD Primary Care Provider [phone] Allergies No known active allergies Medications acebutoloL [...] S/p radiation treatment on levothyroxine Paroxysmal A-fib ([facility] V24, [facility] V28) 06/10 Overview (09/16/2024): 78-year-old female with a loop [...] Encounters Date Type Department Care Team Description 01/26/2025 Telephone [facility] [address] [place] [address] Steve Back MD called pt to schedule f/u appt with Dr Back from Last 3 Months Surgical History Surgery Date Site/Laterality Comments HYSTERECTOMY PROCEDURE: HISTORICAL HYSTERECTOMY TONSILLECTOMY PROCEDURE: HISTORICAL TONSILLECTOMY OTHER SURGICAL HISTORY PROCEDURE: HISTORY OTHER; COMMENT: radioactive I2 treatment for hyperthyroidism Medical History Medical History Date Comments Essential hypertension 07/04/2021 DX:Essent ial hypertension Hyperlipidemia 07/04/2021 DX:Hyperlipidemi a Paroxysmal A-fib (CMS/HCC V2 4, CMS/HCC V28) 07/04/2021 DX:Paroxysmal A-fib ([facility]) Glaucoma 07/04/2021 DX:Glaucoma History of shingles 07/04/2021 [...] 10/20/2024 12:45 PM EST Plan of Treatment Upcoming Encounters Date Type Department Care Team (Late st Contact Info) Description 07/11/2025 8:40 AM EDT Office Visit [facility] [address] [facility] [address] [place] [phone] Steve Back MD [address] [facility] [address] [place] [address] Health Maintenance Due Date Last Done Comments Pneumococcal Vaccine: 50+ Years (1 of 1 - PCV) 1997 RSV Immunization Adult Patients (1 - 1-dose 75+ series) 2022 Cholesterol Screening (Lipid Panel) 10/07/2022 Depression Screening 10/07/2022 Falls Risk Assessment 10/07/2022 Hepatitis C Screening 10/07/2022 Medicare Annual Wellness Visit 10/07/2022 Osteoporosis Screening (Bone Density Screening) 10/07/2022 Social Influencers of Health Screening 10/07/2022 DTaP,Tdap,and Td Vaccines (2 - Td or Tdap) 10/20/2024 10/20/2014 COVID-19 Vaccine ( season) 2025 09/21/2024, 07/07/2022, 10/07/2021, Additional history exists Hypertension/CHF/CAD Annual BMP Blood Test 10/28/2025 10/28/2024, 01/21/2024 Zoster Vaccines Completed 11/30/2020, 08/18/2020 Influenza Vaccine Completed 09/21/2024, , 09/23/2018 HIB [...] age to complete this topic Meningococcal B Vaccine Aged Out No l onger eligible based on patient's age to complete this topic RSV Immunization Patients Under 20 months Aged Out No longer eligible based on patient's age to complete this topic Varicella Vaccines Aged Out No longer eligible based on patient's age to complete this topic Procedures Procedure Name Priority Date/Time Associated Diagnosis Comments BASIC METABOLIC PANEL Routine 10/28/2024 8:06 AM EST Paroxysmal A-fib (CMS/HCC V24, [facility] V28) from Last 3 Months or Most Recently Relevant to Health Maintenance Results * (ABNORMAL) Basic metabolic panel (10/28/2024 8:06 AM EST) Sodium 127(L) 133 - 145 mmol/L LAB CHEMISTRY METHOD 10/28/2024 9:36 AM [facility] Potassium 4.6 3.5 - 5.5 mmol/L LAB CHEMISTRY METHOD 10/28/2024 9:36 AM [facility] Chloride 94(L) 96 - 110 mmol/L LAB CHEMISTRY METHOD 10/28/2024 9:36 AM [facility] CO2 27 21 - 32 mmol/L LAB CHEMISTRY METHOD 10/28/2024 9:36 AM [facility] Anion Gap 6 3 - 11 LAB CHEMISTRY METHOD 10/28/2024 9:36 AM [facility] Glucose 98 70 - 100 mg/dL LAB CHEMISTRY METHOD 10/28/2024 9:36 AM [facility] BUN 13 5 - 25 mg/dL LAB CHEMISTRY METHOD 10/28/2024 9:36 AM [facility] Creatinine 0.82 0.50 - 1.10 mg/dL LAB CHEMISTRY METHOD 10/28/2024 9:36 AM [facility] eGFR 74 >=60 mL/min/1. 73m2 LAB CHEMISTRY METHOD 10/28/2024 9:36 AM [facility] Comment:Calculation based on the??Chronic Kidney Disease Epidemiology Collaboration (CKD-EPI) equation refit??without adjustment for race. BUN/Creatinine Ratio 15.9 LAB CHEMISTRY METHOD 10/28/2024 9:36 AM [facility] Calcium 9.5 8.5 - 10.5 mg/dL LAB CHEMISTRY METHOD 10/28/2024 9:36 AM [facility] Blood Venous blood specimen / Unknown Venipuncture / Unknown 10/28/2024 8:06 AM EST 10/28/2024 9:03 AM EST us Kavya Cohn RESORT MANAGER LAB BLOOD ORDERABLES Final R esult [facility] [address] [place] [address], [place] [phone] from Last 3 Months or Most Recently Relevant to Health Maintenance Insurance MEDICARE Care Teams Home Appraiser Relationship Specialty Start Date End Date Paco Jordan MD [address] [place] [address] PCP - General Internal Medicine 04/02/21
--- OUTSIDE RECORDS SUMMARY | 2025-03-23 11:53 | XMS_ITS | Clinical Summary ---
Author Organization [employer] [facility] Address [address] [facility] 7t [place] [address] Care Team Providers Care Pumper Gauger Name Role Phone Unavailable Primary Care Provider [...] Encounters Date Type Department Care Team Description 03/20/2025 8:00 AM EDT Office Visit [facility] ADULT DENTAL [address] [place] [address] Lenore Bishop 03/07/2025 9:00 AM EDT Office Visit [facility]ULT [facility] [address] [place], [place] [phone] Case Pineda DDS from Last 3 Months [...] Pressure 144/86 03/20/2025 8:07 AM EDT Pulse 60 09/09/2024 10:23 AM EDT Temperature - - Respiratory Rate - - Oxygen Saturation - - Inhaled Oxygen Concentration - - Weight - - Height - - Body Mass Index - - Plan of Treatment Upcoming Encounters Date Type Department Care Team (Late st Contact Info) Description 05/05/2025 10:30 AM EDT Office Visit [facility] ADULT DENTAL [address] [place], [place] [phone] Case Pineda, ALFS [address] [place], [place] [phone] 09/22/2025 8:00 AM EST Office Visit [facility] ADULT DENTAL [address] [place] [address] Lenore Bishop Health Maintenance Due Date Last Done Comments Dental X-Ray: Full Mouth 1947 Depression Screening 1945 Lipid Panel 1945 SDOH Screening 1947 Alcohol/Substance Use Screening 1959 Hepatitis C Screening 1965 Pneumococcal Vaccine: 50+ Years (1 of 1 - PCV) 1997 DTaP/Tdap/Td Vaccines (1 - Tdap) 10/21/2014 10/20/2014 RSV Patients and Patients Aged 60 years or older (1 - 1-dose 75+ series) 2022 COVID-19 Vaccine ( season) 2025 09/21/2024, 07/07/2022, 10/07/2021, Additional history exists Dental Oral Exam 09/21/2025 03/20/2025, 12/08/2023 Dental Prophylaxis 09/21/2025 03/20/2025, 1 11/09/2023, 12/08/2023, Additional history exists Tobacco Screening 03/20/2026 03/20/2025 Dental X-Ray: Bitewings 03/21/2026 03/20/2025, 12/08 Zoster Vaccines Completed 11/30/2020, 08/18/2020 Influenza Vaccine [...] Procedure Name Priority Date/Time Associated Diagnosis Comments PERIODIC ORAL EVALUATION - ESTABLISHED PATIENT Routine 03/20/2025 8:00 AM EDT INTRAORAL - PERIAPICAL EACH ADDITIONAL RADIOGRAPHIC IMAGE Routine 03/20/2025 8:00 AM EDT INTRAORAL - PERIAPICAL FIRST RADIOGRAPHIC IMAGE Routine 03/20/2025 8:00 AM EDT BITEWINGS - 3 RADIOGRAPHIC IMAGES Routine 03/20/2025 8:00 AM EDT ORAL HYGIENE INSTRUCTIONS Routine 2024 8:00 AM EDT CASE PRESENTATION, DETAILED AND EXTENSIVE TREATMENT PLANNING Routine 03/20/2025 8:00 AM EDT PROPHYLAXIS - ADULT Routine 03/20/2025 8 :00 AM EDT RE-EVAL - POST-OP OFFICE VISIT Routine 03/07/2025 9:00 AM EDT from Last 3 Months Insurance DENTAL - HSN FULL (MEDICAID)
== END 2025-03-23 12:03 | disposition home or self-care (01) ==
PROVIDERS: PCP Internal Medicine; Visit Provider Internal Medicine
DX: I10 Essential (primary) hypertension (principal); E78.00 Pure hypercholesterolemia, unspecified; I48.0 Paroxysmal atrial fibrillation; E03.9 Hypothyroidism, unspecified; S32.010S Wedge compression fracture of first lumbar vertebra, sequela; E55.9 Vitamin D deficiency, unspecified

== ENCOUNTER → 2025-03-23 10:45 | Outpatient (BNVA) | payer MEDICARE, SELFPAY | PROVIDERS: PCP Internal Medicine; Visit Provider Internal Medicine | DX: I10 Essential (primary) hypertension (principal); E78.00 Pure hypercholesterolemia, unspecified; I48.0 Paroxysmal atrial fibrillation; E03.9 Hypothyroidism, unspecified; S32.010S Wedge compression fracture of first lumbar vertebra, sequela; E55.9 Vitamin D deficiency, unspecified | CPT/HCPCS: 96127; 99212 ==

== ENCOUNTER 2025-03-25 08:04 | Outpatient (REF) | payer MEDICARE, SELFPAY ==
--- OUTSIDE RECORDS SUMMARY | 2025-03-25 08:07 | XMS_ITS | Clinical Summary ---
Author Organization [employer] [facility] Address [address] [facility] 7t [place] [address] Care Team Providers Care Stem Dryer Maintainer Name Role Phone Unavailable Primary Care Provider [...] [facility] [address] [place] [address] Lenore Bishop 03/07/2025 9:00 AM EDT Office Visit [facility] ADULT DENT[facility] [address] [place], [place] [phone] Case Pineda DDS from Last 3 Months [...] Description 05/05/2025 10:30 AM EDT Office Visit [facility] ADULT DENTAL [address] [place], [place] [phone] Case Pineda, ALFS [address] [place], [place] [phone] 09/22/2025 8:00 AM EST Office Visit [facility] ADULT DENTAL [address] [place] [address] Lenore Bishop Health Maintenance Due Date Last [...]
--- OUTSIDE RECORDS SUMMARY | 2025-03-25 08:07 | XMS_ITS | Encounter Summary ---
Author Organization [employer] [facility] Address [address] [place] [address] 7t [place] [address] Care Team Providers Care Fern Gatherer Name Role Phone Unavailable Primary Care Provider Unavailabl e Encounter Details Date Type Department Care Team (Late st Contact Info) Description 01/08/2023 Telephone [facility] ADULT DENTAL [address] [place], [place] [phone] Jack Hatfield [address] [place] [address] Social History Tobacco Use Types Packs/Day Years [...] Description 05/05/2025 10:30 AM EDT Office Visit [facility] ADULT DENTAL [address] [place] [address] Case Pineda DDS [address] [place] [address] 09/22/2025 8:00 AM EST Office Visit [facility] ADULT DENTAL [address] [place], [place] [phone] Lenore Bishop documented as of this encounter Visit Diagnoses Not on filedocumented in this encounter
--- OUTSIDE RECORDS SUMMARY | 2025-03-25 08:07 | XMS_ITS | Encounter Summary ---
Author Organization [employer] Address [address] [facility] 7 [place] [address] Care Team Providers Care Deputy Clerk Name Role Phone Unavailable Primary Care Provider Unavailabl e Encounter Details Date Type Department Care Team (Latest Contact Info) Description 06/12/2022 Abstract [facility] CONVERSIONS Dental, Provider, DDS Social History [...] 10:30 AM EDT Office Visit [facility] ADULT DENTAL [address] [place] [address] Caes Pineda, DDS [address] [place] [address] 09/22/2025 8:00 AM EST Office Visit [facility] ADULT DENTAL [address] [place] [address] Lenore Bishop documented as of this encounter Visit Diagnoses Not on filedocumented in this encounter
--- OUTSIDE RECORDS SUMMARY | 2025-03-25 08:07 | XMS_ITS | Encounter Summary ---
Author Organization [employer] Address [address] [facility] 7[address] [place] [address] Care Team Providers Care District Sales Leader Name Role Phone Unavailable Primary Care Provider Unavailabl e Reason for Visit * Reason Onset Date Comments recement crown 10/17/2024 Encounter Details Date Type Department Care Team (Late Contact Info) Description 10/17/2024 Telephone [facility] ADULT [facility] [address] [place] [address] Klaudia Finn DMD recement crown Social History [...] Description 05/05/2025 10:30 AM EDT Office Visit [facility] ADULT DENTAL [address] [place] [address] Case Pineda DDS [address] [place] [address] 09/22/2025 8:00 AM EST Office Visit [facility] ADULT DENTAL [address] [place] [address] Lenore Bishop documented as of this encounter Visit Diagnoses Not on filedocumented in this encounter
--- OUTSIDE RECORDS SUMMARY | 2025-03-25 08:07 | XMS_ITS | Encounter Summary ---
Author Organization [facility] Address [address] [facility] 7[address] [place] [address] Care Team Providers Care Concrete Engineering Technician Name Role Phone Unavailable Primary Care Provider Unavailabl e Reason for Visit * Reason Comments Routine Cleaning Dental Exam Encounter Details Date Type Department Care Team (Late st Contact Info) Description 03/20/2025 8:00 AM EDT Office Visit [facility] ADULT DENTAL [address] [place] [address] Lenore Bishop Social History Tobacco Use Types [...] Timeout Date: 03/20/25, Timeout Time: 0809 Location: [facility] Tooth: Maxilla and Mandible Procedure: Exam, X-rays, and Prophylaxis Verified the above with 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 Confirmed via patient's chart, intraorally and by radiographs. [facility] Traffic [facility]: not applicable Medical Hx: Vitals: Blood pressure [...] patient including brushing technique and flossing. Recommendations: [place]aft two times daily, modified crane technique, Floss daily, Electric toothbrush, Soft bristle toothbrush, [place] Tongue, Anti-sensitivity toothpaste Recall Frequency: 6 mo [...] y.o. female. Time Out: Date: 03/20/2025 Location: [facility] Tooth: Maxilla and Mandible Procedure: Exam and X-rays Verified the above with 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 Confirmed via patient's chart, intraorally and by radiographs. [facility]: not applicable 80 y.o. year old female patient presents to clinic for a Comprehensive exam completed by Dr. Klaudia Finn DMD CONSENT FORM INITIALED & SIGNED BY THE PATIENT AND COUNTERSIGNED BY Dr. Klaudia Finn DMD Chief Complaint: I am due for an exam. [place]: Pain: None Duration: N/A Scale of pain [...] lymph nodes Intraoral examination Soft tissues - [place] and Normal Palate - [place] and Normal Tongue - [place] and Normal Buccal mucosa - [place] and Normal Floor of mouth - [place] and Normal Vestibules - [place] and Normal Lips - [place] and Normal Glands - [place] and Normal Duct area - [place] and Normal Oropharynx - [place] and Normal Gingiva Color - [place] and Normal Contour - Blunted Recession - [...] of brushing and flossing. Caries planned for baptism. Patient to be seen at [facility] specialist ( see notes from Dr. Pineda February 2025). Patient understands tooth #10 is non-restorable and that the temporary crown re- cementation performed is not a senior care solution. Patient to contact [facility] for further appointments after meeting with [...] to specialist outside of the clinical site: Mortgage Protection Specialist All patient questions answered. Patient comfortable upon [...] Description 05/05/2025 10:30 AM EDT Office Visit [facility] ADULT DENTAL [address] [place] [address] Case Pineda DDS [address] [place] [address] 09/22/2025 8:00 AM EST Office Visit [facility] ADULT DENTAL [address] [place] [address] Lenore Bishop Scheduled Orders Name Type Priority [...]
--- OUTSIDE RECORDS SUMMARY | 2025-03-25 08:07 | XMS_ITS | Clinical Summary ---
Author Organization [address] [place] [address] [place] [phone] Phone Care Team Providers Care Rip And Groove Machine Operator Name Role Phone Paco Jordan MD Primary Care Provider [phone] Allergies No known active allergies Medications acebutoloL [...] S/p radiation treatment on levothyroxine Paroxysmal A-fib ([facility] V24, [facility] V28) 06/10 Overview (09/16/2024): 78-year-old [...] Type Department Care Team Description 01/26/2025 Telephone [facility] [address] [place] [address] Steve Back MD called pt [...] V2 4, CMS/HCC V28) 07/04/2021 DX:Paroxysmal A-fib ([facility]) Glaucoma 07/04/2021 DX:Glaucoma History of [...] Description 07/11/2025 8:40 AM EDT Office Visit [facility] [address] [facility] [address] [place] [address] Steve Back MD [address] [facility] [place] [address] Health Maintenance Due Date Last Done Comments [...] 8:06 AM EST Paroxysmal A-fib (CMS/HCC V24, [facility] V28) from Last 3 Months [...] 15.9 LAB CHEMISTRY METHOD 10/28/2024 9:36 AM [facility] Calcium 9.5 8.5 - 10.5 mg/dL LAB CHEMISTRY METHOD 10/28/2024 9:36 AM [facility] Blood Venous blood specimen / Unknown Venipuncture / Unknown 10/28/2024 8:06 AM EST 10/28/2024 9:03 AM EST us Kavya Cohn [facility] BLOOD ORDERABLES Final R esult [facility] [address] [place] [address], [place] [phone] from Last 3 Months or Most Recently Relevant to Health Maintenance Insurance MEDICARE Care Teams Rip And Groove Machine Operator Relationship Specialty Start Date End Date Paco Jordan MD [address] [place] [address] PCP - General Internal Medicine 04/02/21
[2025-03-25 08:15] LABS: MANUAL DIFF FLAG NO
[2025-03-25 08:38] LABS: Basophils Absolute Auto 0.1 X10*3/uL (0.0-0.2); Basophils Percent Auto 0.7 % (0-2); Eosinophils Absolute Auto 0.2 X10*3/uL (0.0-0.4); Eosinophils Percent Auto 1.5 % (0-4); Hematocrit 34.9 % (37.0-47.0); Hemoglobin 11.8 g/dl (12.0-16.0); Imm Gran Abs Auto 0.03 X10*3/uL (0.00-0.03); Imm Gran Pct Auto 0.3 % (0.0-0.4); Lymphocytes Absolute Auto 4.9 X10*3/uL (1.2-4.9); Lymphocytes Percent Auto 43.9 % (20-40); Mean Corpuscular HGB Conc 33.8 g/dl (31.0-35.0); Mean Corpuscular Hemoglobin 31.1 pg (27.0-33.0); Mean Corpuscular Volume 92.1 fL (80.0-98.0); Mean Platelet Volume 9.4 fL (9.4-12.3); Monocytes Absolute Auto 0.9 X10*3/uL (0.1-1.2); Monocytes Percent Auto 7.7 % (2-11); Neutrophils Absolute Auto 5.1 x10*3/uL (2.0-8.3); Neutrophils Percent Auto 45.9 % (45-73); Platelet Count 215 X10*3/uL (160-400); Red Blood Count 3.79 X10*6/uL (4.20-5.50); Red Cell Distribution Width 12.7 % (11.0-16.0); White Blood Count 11.1 X10*3/uL (4.8-10.8)
[2025-03-25 09:21] LABS: Alanine Aminotransferase 22 U/L (0-31); Albumin Level 4.1 g/dL (3.5-5.0); Alkaline Phosphatase 72 U/L (39-117); Anion Gap 10 (12-20); Aspartate Amino Transferase 27 U/L (5-31); Bilirubin Total 0.7 mg/dL (0.0-1.0); Blood Urea Nitrogen 16 mg/dL (9-16); Calcium 9.3 mg/dL (8.4-10.2); Carbon Dioxide 28 mmol/L (22-29); Chloride 99 mmol/L (96-108); Estimated Glomerular Filt Rate > 60; Glucose Random 107 mg/dL (60-115); Potassium 4.7 mmol/L (3.3-5.1); Sodium 132 mmol/L (135-145); Total Protein 6.6 g/dL (6.5-8.0)
[2025-03-25 09:29] LABS: Free T4 (Free Thyroxine) 0.88 ng/dL (0.71-1.85); Thyroid Stimulating Hormone 10.94 uIU/mL (0.32-4.0)
== END 2025-03-25 08:05 | disposition home or self-care (01) ==
LOC: HO.LAB 08:04
PROVIDERS: PCP Internal Medicine; Visit Provider Internal Medicine
DX: E03.9 Hypothyroidism, unspecified (principal); D64.9 Anemia, unspecified
CPT/HCPCS: 36415; 80053; 84439; 84443; 85025

== ENCOUNTER 2025-04-28 13:19 | Outpatient (AMB) | payer MEDICARE, SELFPAY ==
--- OUTSIDE RECORDS SUMMARY | 2025-04-28 13:21 | XMS_ITS | Encounter Summary ---
Author Organization [employer] [facility] Address [address] [place] [address] Care Team Providers Care Sound Printer Name Role Phone Unavailable Primary Care Provider Unavailabl e Encounter Details Date Type Department Care Team (Latest Contact Info) Description 06/12/2022 Abstract [facility] CONVERSIONS Dental, Provider, DDS Social History [...] Care Team (Late st Contact Info) Description 05/16/2025 10:30 AM EDT Office Visit [facility] ADULT DENTAL [address] [place] [address] Case Pineda DDS [address] [place] [address] 09/22/2025 8:00 AM EST Office Visit [facility] ADULT DENTAL [address] [place] [address] Lenore Bishop documented as of this encounter Visit Diagnoses Not on filedocumented in this encounter
--- NOTE | 2025-04-28 13:34 | A.SPINEOV_ITS ---
Intake Visit Reasons: follow up for LBP Intake Note: Ms. Paulino is here today to F/U on her Low back pain. Tumble Tailstock Turret Lathe Operator Required: No Allergies No Known Allergies Allergy (Verified 03/23/25 11:50) Assessment & Plan Assessment & Plan (1) Back pain: Code(s): M54.9 - Dorsalgia, unspecified Category: Medical Plan Mrs Paulino is following up here in the office today. She is a patient known to Dr. Vitale from a previous L1 compression fracture that healed without intervention. She comes in today because for about the last month and a half 2 months she has been having a severe pain on the right side of her low back going into her buttock region and a little bit radiating around to her groin. It started abruptly. She has not recall any specific event the set it off. Since the onset of symptoms she has been doing conservative management in the form of heat, ice, stretching that she has done from previous therapy programs, ibuprofen and Tylenol. Unfortunately these things have not been working. On exam, she seems very uncomfortable, having a hard time standing up. She is limping using a cane to get around the room. 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 She feels the right leg maybe getting a little bit weaker. Watching her walk, she has a bit of a Trendelenburg gait with some pelvic rotation when she bears weight on her right leg. She has no tenderness to internal and external rotation, CHELLY testing is negative. Her strength is diffusely 2/5 on the right leg, left leg full strength. Reflexes absent on the right side and normal on the left. Based on her presentation and her history of osteoporosis, I am concerned she has developed a new compression fracture, or as a secondary diagnosis possible herniated disc. Because of the baseline weakness in her right leg and the increased difficulty walking. I do not want to hesitate with getting imaging on her, as she only has a 2/5 weakness at baseline and she feels like it might be slightly worse. I will order the MRI urgently and re-evaluate after that. Total amount of time spent in this visit was 20 minutes in discussion of symptoms, ordering lumbar imaging and subsequent plan of care Kehinde Vitale MD,PhD [facility] Orders: Orders MR lumbar spine wo con Today M54.9 - Dorsalgia, unspecified Coding Level of Care Code Est Pt Level 3 (32971) Diagnoses Back pain M54.9
== END 2025-04-28 14:05 | disposition home or self-care (01) ==
PROVIDERS: PCP Internal Medicine; Visit Provider Physician Assistant
DX: M54.9 Dorsalgia, unspecified (principal)
CPT/HCPCS: 99213

== ENCOUNTER → 2025-04-28 13:19 | Outpatient (BNVA) | payer MEDICARE, SELFPAY | PROVIDERS: PCP Internal Medicine; Visit Provider Physician Assistant | DX: M54.9 Dorsalgia, unspecified (principal) | CPT/HCPCS: 99212 ==

== ENCOUNTER 2025-04-29 11:16 | Outpatient (REF) | payer MEDICARE, OTHER, SELFPAY ==
--- NOTE | ~2025-04-29 | MR_ITS ---
CLINICAL HISTORY: M54.9 - Dorsalgia, unspecified MR lumbar spine without gadolinium Comparison: None Findings: There is an old superior endplate compression fracture at L1 with approximately 30% height loss. No acute compression fracture or acute malalignment. There is straightening of the normal lumbar lordosis. There is diffuse disc space narrowing and disc desiccation most pronounced at L5-S1. The visualized retroperitoneal structures demonstrate right-sided renal cysts. Paravertebral soft tissues are unremarkable. The conus terminates normally at cauda equina are within normal limits. Individual levels: T12-L1: Small posterior disc protrusion with facet hypertrophy. Mild central canal narrowing. No significant neural foraminal narrowing. L1-L2: Moderate left eccentric disc protrusion. Moderately severe left neural foraminal narrowing. Moderate right neural foraminal narrowing. Mild central canal stenosis. L2-L3: Severe central canal stenosis related to a posterior disc protrusion, facet hypertrophy and ligamentum flavum thickening. There is also severe bilateral neural foraminal narrowing at this level, [id number]. L3-L4: Moderate posterior disc protrusion. Moderately severe right neural foraminal narrowing. Moderate central canal stenosis. L4-L5: Posterior disc protrusion with facet hypertrophy. Moderately severe central canal stenosis. Moderate bilateral neural foraminal narrowing, [id number]-right. L5-S1: Moderately severe central canal stenosis. Right eccentric disc protrusion. Moderate bilateral neural foraminal narrowing. Impression: Moderately severe lumbar spondylosis with multilevel central canal stenosis and neural foraminal narrowing. This document has been electronically signed by: Alexander Mtz MD on 04/29/2025 12:15:58
--- OUTSIDE RECORDS SUMMARY | 2025-04-29 11:19 | XMS_ITS | Encounter Summary ---
Author Organization [facility] Address [address] [place] [address] Care Team Providers Care Evaluation Engineer Name Role Phone Unavailable Primary Care Provider Unavailabl e Encounter Details Date Type Department Care Team (Latest Contact Info) Description 06/12/2022 Abstract [facility] CONVERSIONS Dental, Provider, DDS Social [...] Description 05/16/2025 10:30 AM EDT Office Visit [facility] ADULT DENTAL [address] [place] [address] Case Pineda DDS [address] [place] [address] 09/22/2025 8:00 AM EST Office Visit [facility] ADULT DENTAL [address] [place] [address] Lenore Bishop documented as of this encounter Visit Diagnoses Not on filedocumented in this encounter
== END 2025-04-29 11:17 | disposition home or self-care (01) ==
LOC: HO.MRI 11:16
PROVIDERS: Visit Provider Physician Assistant
DX: M54.9 Dorsalgia, unspecified (principal)
CPT/HCPCS: 72148

== ENCOUNTER → 2025-04-29 11:21 | Outpatient (BNV) | payer MEDICARE, SELFPAY | PROVIDERS: Visit Provider Radiology Vascular & Interventional Radiology | DX: M51.360 Other intervertebral disc degeneration, lumbar region with discogenic back pain only (principal) | CPT/HCPCS: 72148 ==

== ENCOUNTER 2025-07-17 14:21 | Outpatient (AMB) | payer MEDICARE, SELFPAY ==
[2025-07-17 14:41] VITALS: BP 152/98; PULSE 69; O2SAT 98; BMI 22.4
--- NOTE | 2025-07-17 14:41 | A.OFFPC_ITS ---
Vital Signs 07/17/25 14:41 Height 4 ft 11 in Weight 111 lb BMI 22.4 BP 152/98 H Blood Pressure Location Lt brachial Position Sitting Pulse 69 Pulse Source Pulse Oximeter Pulse Oximetry (%) 98 Oxygen Delivery Method Room Air Intake Visit Reasons: hypothyroidism, hyperlipidemia, HTN Electroplating Worker Required: No Accompanied by: Self / Same As Patient Allergies No Known Allergies Allergy (Verified 07/17/25 15:08) Medication List - Last Reconciled 07/17/25 by Leonidas Betancourt MD acebutolol 200 mg PO BID atorvastatin 5 mg (1/2 x 10 mg) PO DAILY cholecalciferol (vitamin D3) 25 mcg PO DAILY latanoprost 0.005% 1 drp ophthalmic (eye) BEDTIME levothyroxine 75 mcg PO DAILY levothyroxine 75 mcg PO DAILY losartan 100 mg PO DAILY oxycodone 5 mg PO Q8H PRN 30 days spironolactone 25 mg PO DAILY tramadol 50 mg PO Q6H PRN Tobacco use date assessed: 07/17/25 Fall risk assessment: No Falls in past year Last assessed Fall Risk: 07/17/25 Dental Screening Dental Screen Date: 07/17/25 Did you have a dental visit in the last 12 months?: Yes Did you have a dental problem in the last 6 months where you did not have access to dental care?: No Was dental information given to patient?: Patient has dentist HPI hypothyroidism, hyperlipidemia, HTN HPI Details Patient comes in today for her follow up visit States that she continues to experience increased pain over her lower back and is still unable to sit for long periods of time or her lower back will tighten up on her She was seen by neurosurgery for consultation a few months ago and was sent for a lumbar spine MRI for further evaluation, with concerns about her previous compression fractures Her lumbar spine MRI done on 04/29/2025 revealed only moderately severe lumbar spondylosis with multilevel central canal stenosis and neural foraminal narrowing so there are no surgical indications at this time Patient states that she feels okay otherwise She denies any headaches or dizziness Denies any chest pains, no increased shortness of breath No nausea/vomiting, no abdominal pain No change in bowel habits noted Patient was also not able to get her previously ordered follow up labs done prior to coming in for her appointment today [facility] Medical History (Updated 07/17/25 @ 15:24 by Leonidas Betancourt MD) Paroxysmal atrial fibrillation Vitamin D deficiency Pure hypercholesterolemia Acquired hypothyroidism Pure hypercholesterolemia with target low density lipoprotein (LDL) cholesterol less than 130 mg/dL Essential hypertension Atrial fibrillation Somatic dysfunction of right sacroiliac joint Right knee pain Surgical History History of colonoscopy History of surgery H/O total hysterectomy Family History Father CAD (coronary artery disease) Mother CAD (coronary artery disease) Social History Housing: House Alcohol intake: current Alcohol intake frequency: 0-2 drinks per day Alcohol type: beer and wine Patient Tobacco Use Status: Never used Tobacco e-Cigarette/Vaping Use: Never Used Second Hand Smoke Exposure: No service: No Current occupational status: retired Cognitive needs: No Hearing needs: Yes Vision needs: Yes Questionnaire PHQ-9 Over the last 2 weeks, how often have you been bothered by any of the following problems? 1. Little interest or pleasure in doing things: not at all 2. Feeling down, depressed, or hopeless: not at all 3. Trouble falling or staying asleep, or sleeping too much: not at all 4. Feeling tired or having little energy: not at all 5. Poor appetite or overeating: not at all 6. Feeling bad about yourself - or that you are a failure or have let yourself or your family down: not at all 7. Trouble concentrating on things, such as reading the newspaper or watching television: not at all 8. Moving or speaking so slowly that other people could have noticed. Or the opposite - being so fidgety or restless that you have been moving around a lot more than usual: not at all 9. Thoughts that you would be better off or of hurting yourself in some way: not at all Total score: 0 Depression Screening Interpretation: Negative Depression Screening Done: Yes 79901 - PHQ-9 Billing: Yes Source: Developed by Drs. Sagar Haile, Pricilla Hatfield, Silviano Bojorquez and colleagues, with an educational ena from [employer]. Thrive Questionnaire Date Thrive assessed: 07/17/25 I am a: Patient What is your living situation today?: I have a steady place to live Within the past 12 months, did the food you bought not last and you didn't have the money to get more?: Never true Within the past 12 months, did you worry whether your food would run out before you got money to buy more?: Never true Do you have trouble paying for medicines?: Yes Do you have trouble getting transportation to medical appointments?: No Do you have trouble paying your heating and electricity bill?: No Do you have trouble taking care of your child, family member or friend?: No Do you have trouble with day-to-day activities such as bathing, preparing meals, shopping, managing finances, etc.?: No Are you currently unemployed and looking for a job?: No Are you interested in more education?: No Please select the resources that you would like help with: None Currently or been in a relationship where the following occur: No concerns reported THRIVE Score: 0 AUDIT C Alcohol Use Questionnaire (AUDIT-C) 1. How often do you have a drink containing alcohol?: Monthly or less 2. How many drinks containing alcohol do you have on a typical day when you are drinking?: 5 or 6 3. How often do you have six or more drinks on one occasion?: Less than monthly Total Score: 4 Score Reviewed/Action Taken: Yes VENANCIO-7 AMB Questionnaire VENANCIO-7 Date VENANCIO - 7 assessed: 07/17/25 Feeling nervous, anxious, or on edge: 0 = Not at all Not being able to stop or control worryin = Not at all Worrying too much about different things: 0 = Not at all Trouble relaxin = Not at all Being so restless that it is hard to sit still: 0 = Not at all Becoming easily annoyed or irritable: 0 = Not at all Feeling afraid as if something awful might happen: 0 = Not at all Total VENANCIO-7 score (0-4 normal; 5-9 mild; 10-14 moderate; 15-21 severe): 0 Source: Developed by Drs. Sagar Haile, Pricilla Hatfield, Silviano Bojorquez and colleagues, with an educational ena from [employer]. Review of Systems Const Denies chills, Denies fatigue, Denies fever(s) and Denies headache(s) ENT Denies dysphagia, Denies dizziness, Denies otalgia, Denies headache(s), Denies neck pain, Denies odynophagia and Denies sore throat Card Denies chest pain, Denies palpitations and Denies dyspnea Resp Denies chest congestion, Denies cough and Denies dyspnea GI Denies abdominal pain, Denies constipation, Denies dysphagia, Denies heartburn, Denies diarrhea, Denies nausea, Denies odynophagia and Denies vomiting Denies difficulty voiding, Denies nocturia, Denies dysuria and Denies urinary urgency Musc Reports back pain (over the lower back - increased lately - see HPI) and Denies neck pain Skin/Breast Denies rash Neuro Denies dizziness and Denies headache(s) Endo Denies fatigue and Denies palpitations Bhanu/Lymph Denies easy bruising Physical exam (Primary Care) Vital Signs: Last Vital Signs Pulse 69 07/17/25 14:41 BP 152/98 H 07/17/25 14:41 Pulse Ox 98 07/17/25 14:41 Oxygen Delivery Method Room Air 07/17/25 14:41 BMI result Body Mass Index 22.4 Tobacco/Smoking Status: Tobacco use Status Tobacco use date assessed 07/17/25 07/17/25 14:44 Patient Tobacco Use Status Never used Tobacco 07/17/25 14:44 e-Cigarette/Vaping Use Never Used 07/17/25 14:44 PHQ-9: PHQ-9 Score PHQ-9: Total score 0 07/17/25 15:27 Depression Screening Interpretation: Negative Thrive Assessment: Date of Thrive Assessment Date Thrive assessed 07/17/25 07/17/25 14:44 Currently or been in a relationship where the following occur: No concerns reported Const General: no acute distress and alert HENMT Ears: TM's normal bilaterally and EAC's normal Throat: Yes posterior oropharynx normal and Yes tonsils normal (no TP congestion) Neck Neck: Yes supple and No lymphadenopathy Thyroid: Thyroid normal Resp Auscultation: clear to auscultation bilaterally, no rales and no wheezes Cardio Rate: regular rate Rhythm: regular rhythm Heart sounds: no murmurs GI Palpation (GI): Soft to palpation and nontender Auscultation: normal bowel sounds General: Yes no CVA tenderness Back/Spine/Pelvis Back: no CVA tenderness Thoracic/Lumbar Spine: lumbar spinal tenderness (increased lately) Skin Rashes: no rashes Extrem General: Yes no clubbing, cyanosis or edema Coding Level of Care Code Est Pt Level 4 (97884) Diagnoses Essential hypertension I10 Pure hypercholesterolemia E78.00 Paroxysmal atrial fibrillation I48.0 Acquired hypothyroidism E03.9 Compression fracture of L1 vertebra, sequela S32.010S Encounter type: sequela Lumbar vertebra fracture level: L1 Vitamin D deficiency E55.9 Additional Codes PHQ-9 - 82516 - PHQ-9 Billing: Yes ([id number]) Assessment & Plan Assessment & Plan (1) Essential hypertension: Code(s): I10 - Essential (primary) hypertension Category: Medical Plan: Reinforced low sodium diet - goal is systolic BP of 120 to 130 mm or less Patient does seem to have a component of white-coat syndrome as her blood pressure goes up significantly when it is checked here in the office Her BP log brought in previously reveald excellent BP control consistently whenever her BP is checked at home Continue Losartan 100 mg QD and Spironolactone 25 mg QD; she is also on Acebutolol 200 mg BID but that is to help control her heart rate and minimize recurrence of her previous symptoms of palpitations (2) Pure hypercholesterolemia: Code(s): E78.00 - Pure hypercholesterolemia, unspecified Category: Medical Plan: She was not able to get her previously ordered labs done prior to coming in for her appointment today - states that she will try to go and get these done ZULY Reinforced low cholesterol diet Continue Atorvastatin 5 mg (1/2 of 10 mg tablet) QD Will recheck her labs and fasting lipids again in 4 months for follow up (3) Paroxysmal atrial fibrillation: Code(s): I48.0 - Paroxysmal atrial fibrillation Category: Medical Plan: Patient reportedly has several brief episodes of atrial fibrillation documented on loop recorder back on 2017 but has had no recurrence since She has a CHADsVasc score of 3 but as she has not had any further recurrence since 2017, she has not been on any thromboembolism prophylaxis Continue Acebutolol 200 mg BID She was on Aspirin 81 mg QD but also appears to have stopped taking it a while ago Follow up with cardiology as scheduled (4) Acquired hypothyroidism: Code(s): E03.9 - Hypothyroidism, unspecified Category: Medical Plan: Continue Levothyroxine 50 mcg QD Will recheck her TFTs in 4 months for follow up (5) Lumbar compression fracture: Code(s): S32.000A - Wedge compression fracture of unspecified lumbar vertebra, initial encounter for closed fracture Category: Medical Qualifiers: Encounter type: sequela Lumbar vertebra fracture level: L1 Qualified Code(s): S32.010S - Wedge compression fracture of first lumbar vertebra, sequela Plan: Reinforced activity and weight-lifting restrictions to avoid aggravating her low back pain Continue Tramadol 50 mg TID PRN for pain for now Will also refill her Oxycodone 5 mg Q 8 hours PRN only for severe pain, per her request She has (+) Hx of L1 vertebral compression Fx and notes that her low back pain seems to have gotten worse lately and she was referred back to neurosurgery for further recommendations She was seen by neurosurgery a few months ago and was sent for a lumbar spine MRI for further evaluation, with concerns about her previous compression fracture Her lumbar spine MRI done on 04/29/2025 revealed only moderately severe lumbar spondylosis with multilevel central canal stenosis and neural foraminal narrowing so there are no surgical indications at this time Will now go ahead and refer patient to physical therapy for further evaluation and management - patient has requested to be referred to [facility] instead (6) Vitamin D deficiency: Code(s): E55.9 - Vitamin D deficiency, unspecified Category: Medical Plan: Continue Vitamin D3 2000 units QD Plan Follow up in 4 months Orders: Referrals Physical Medicine and Rehabilitation Referral M47.816 - Spondylosis without myelopathy or radiculopathy, lumbar region, M81.0 - Age-related osteoporosis without current pathological fracture Medications: Refilled oxycodone Partial Fill upon patient request. 5 mg PO Q8H PRN 20 tabs 0RF pain 30 days
--- OUTSIDE RECORDS SUMMARY | 2025-07-17 16:46 | XMS_ITS | Encounter Summary ---
Author Organization [employer] Address [address] [place] [address] [address] [place] [address] Care Team Providers Care Environmental Services Associate Name Role Phone Unavailable Primary Care Provider Unavailabl e Encounter Details Date Type Department Care Team (Late Contact Info) Description 01/08/2023 Telephone [facility] ADULT DENTAL [address] [place] [address] Jack Hatfield [address] [place], [place] [phone] Social History Tobacco Use Types Packs/Day Years [...] Department Care Team (Late Contact Info) Description 09/22/2025 8:00 AM EST Office Visit [facility] [address] [place] [address] Lenore Bishop documented as of this encounter Visit Diagnoses Not on filedocumented in this encounter
--- OUTSIDE RECORDS SUMMARY | 2025-07-17 16:46 | XMS_ITS | Encounter Summary ---
Author Organization [employer] Address [address] [place] [address] Care Team Providers Care Refrigeration Installer Name Role Phone Unavailable Primary Care Provider Unavailabl e Encounter Details Date Type Department Care Team (Latest Contact Info) Description 06/12/2022 Abstract [facility] CONVERSIONS Dental, Provider, DDS Social History Tobacco [...] Care Team (Late st Contact Info) Description 09/22/2025 8:00 AM EST Office Visit [facility] ADULT DENTAL [address] [place] [address] Lenore Bishop documented as of this encounter Visit Diagnoses Not on filedocumented in this encounter
--- OUTSIDE RECORDS SUMMARY | 2025-07-17 16:47 | XMS_ITS | Clinical Summary ---
Author Organization [employer] Address [address] [place] [address] Care Team Providers Care Cushion Sewer Name Role Phone Unavailable Primary Care Provider [...] Encounters Date Type Department Care Team Description 05/16/2025 10:30 AM EDT Office Visit [facility] ADULT DENTAL [address] [place] [address] Case Pineda DDS from Last 3 Months [...] Description 09/22/2025 8:00 AM EST Office Visit [facility] ADULT D[facility]AL [address] [place], [place] [phone] Lenore Bishop Health Maintenance Due Date Last [...] 1-dose 75+ series) 2022 COVID-19 Vaccine ( - season) 2025 09/21/2024, 07/07/2022, 10/07/2021, Additional history exists Influenza Vaccine (#1) 2025 , 11/11/2023, 09/23/2018 Dental Oral Exam 09/21/2025 03/20/2025, 12/08/2023 Dental Prophylaxis 09/21/2025 03/20/2025, 1 11/09/2023, 12/08/2023, Additional history exists Dental X-Ray: Bitewings 03/21/2026 03/20/2025, 12/08 Tobacco Screening 05/16/2026 05/16/2025 Zoster Vaccines Completed 11/30/2020, 08/18/2020 HIB Vaccines Aged Out No longer eligi [...] Procedure Name Priority Date/Time Associated Diagnosis Comments CASE PRESENTATION, DETAILED AND EXTENSIVE TREATMENT PLANNING Routine 05/16/2025 10:30 AM EDT LIMITED ORAL EVALUATION - PROBLEM FOCUSED Routine 05/16/2025 10:30 AM EDT PROPHYLAXIS - ADULT Routine 03/20/2025 8 :00 AM EDT BITEWINGS - 3 RADIOGRAPHIC IMAGES Routine 03/20/2025 8:00 AM EDT PERIODIC ORAL EVALUATION - ESTABLISHED PATIENT Routine 03/20/2025 8:00 AM EDT from Last 3 Months or Most Recently Relevant to Health Maintenance Insurance DENTAL - HSN FULL (MEDICAID)
--- OUTSIDE RECORDS SUMMARY | 2025-07-17 16:47 | XMS_ITS | Clinical Summary ---
Author Organization [address] [place] [address] Address [address] [place] [address] Phone Care Team Providers Care Maintenance Superintendent Name Role Phone Leonidas Betancourt MD Primary Care Provider + [phone] Allergies No known active allergies Medications acebutoloL (SECTRAL) 200 mg capsule TAKE ONE CAPSULE TWICE DAILY 2 Active atorvastatin (LIPITOR) 10 mg tablet Take 5 mg by mouth daily. (11/10 tab) Active CHOLECALCIFERO L, VITAMIN D3, ORAL Take 500 Int'l Units by mouth daily. Active spironolactone (ALDACTONE) 25 mg tablet Take 1 tablet (25 mg total) by mouth 1 (one) time each day. 90 tablet 3 4 Active losartan (COZAAR) 100 mg tablet TAKE ONE TABLET EVERY DAY 30 tablet 5 5 Active levothyroxine (SYNTHROID, LEVOTHROID) 75 mcg tablet Take 1 tablet (75 mcg total) by mouth 1 (one) time each day. 5 Active oxyCODONE (ROXICODONE) 5 mg immediate release tablet Take 1 tablet (5 mg total) by mouth every 8 (eight) hours if needed. Max Daily Amount: 15 mg 5 Active levothyroxine (SYNTHROID, LEVOTHROID) 88 mcg tablet Take 1 tablet (88 mcg total) by mouth 1 (one) time each day before breakfast. 07/11/20 25 Discontinued Active Problems Problem Noted Date Diagnosed Date Multiple premature ventricular complexes 025 Overview (07/11/2025): Overall burden appears to be 1 to 2%. Morphology appears to be outflow tract in origin. No structural heart disease or active coronary disease. Assessment & Plan (07/11/2025 9:13 AM EDT): She has continued to be quite modest in the overall frequency with no episodes of VT and no symptoms. Acebutolol should be adequate management going forward. DDD (degenerative disc disease), lumbosacral Essential hypertension [...] a low-sodium diet and encouraged regular exercise. Assessment & Plan (07/11/2025 9:12 AM EDT): Markedly elevated blood pressure in the office today but a very detailed home blood pressure log showing normal range of blood pressures. I do not see any clear evidence of LVH on ECG and I think overall I would continue with her current medicines. From an antiarrhythmic standpoint recent studies have shown benefits of a slightly elevated potassium in the 4.5-5.5 range and I told her I was not concerned if her potassium is on the higher side. She will continue a low-sodium diet. Glaucoma 07/04/2021 Hyperlipidemia 07/04/2021 Overview (09/16/2024): Last [...] S/p radiation treatment on levothyroxine Paroxysmal A-fib (CMS/HCC V24, CMS/HCC V28) 06/10 Overview (09/16/2024): 78-year-old female with [...] a healthy lifestyle with minimalization of alcohol. Assessment & Plan (07/11/2025 9:13 AM EDT): No recurrences of atrial fibrillation over quite a long time. I am therefore comfortable without any anticoagulation. Does have a Fitbit that monitors her heart rate and she is very attentive to look for any recurrent arrhythmias. Encounters Date Type Department Care Team Description 07/11/2025 8:40 AM EDT Office Visit [facility] [address] [facility] [address] [place] [address] Steve Back MD Paroxysmal A-fib ([facility] V24, [facility] V28) (Primary Dx); Essential hypertension; Multiple premature ventricular complexes from Last 3 Months Surgical History Surgery Date Site/Laterality Comments HYSTERECTOMY PROCEDURE: HISTORICAL HYSTERECTOMY TONSILLECTOMY PROCEDURE: HISTORICAL TONSILLECTOMY OTHER SURGICAL HISTORY PROCEDURE: HISTORY OTHER; COMMENT: radioactive I2 treatment for hyperthyroidism Medical History Medical History Date Comments Essential hypertension 07/04/2021 DX:Essent ial hypertension Hyperlipidemia 07/04/2021 DX:Hyperlipidemi a Paroxysmal A-fib ([facility] V2 4, [facility] V28) 07/04/2021 DX:Paroxysmal A-fib (HCC) Glaucoma 07/04/2021 DX:Glaucoma History of shingles 07/04/2021 [...] Sign Reading Time Taken Comments Blood Pressure 190/70 07/11/2025 8:37 AM EDT Pulse 63 07/11/2025 8:37 AM EDT Temperature - - Respiratory Rate - - Oxygen Saturation 99% 07/11/2025 8:37 AM EDT Inhaled Oxygen Concentration - - Weight 50.8 kg (112 lb) 07/11/2025 8:37 AM EDT Height 154.9 cm (5' 1 ) 07/11/2025 8:37 AM EDT Body Mass Index 21.16 07/11/2025 8:37 AM EDT Plan of Treatment Health Maintenance Due Date Last Done Comments Pneumococcal Vaccine: 50+ Years (1 of 1 - PCV) 1997 RSV Immunization Adult Patients (1 - 1-dose 75+ series) 2022 Cholesterol Screening (Lipid Panel) 10/07/2022 Falls Risk Assessment 10/07/2022 Hepatitis C Screening 10/07/2022 Medicare Annual Wellness Visit 10/07/2022 Osteoporosis Screening (Bone Density Screening) 10/07/2022 Social Influencers of Health Screening 10/07/2022 DTaP,Tdap,and Td Vaccines (2 - Td or Tdap) 10/20/2024 10/20/2014 Depression Screening 11/09/2024 COVID-19 Vaccine ( season) 2025 09/21/2024, 07/07/2022, 10/07/2021, Additional history exists Influenza Vaccine (#1) 2025 , 11/11/2023, 09/23/2018 Hypertension/CHF/CAD Annual BMP Blood Test 10/28/2025 10/28/2024, 01/21/2024 Zoster Vaccines Completed 11/30/2020, 08/18/2020 HIB Vaccines [...] Procedure Name Priority Date/Time Associated Diagnosis Comments ECG 12-LEAD Routine 07/11/2025 9:14 AM EDT Paroxysmal A-fib (CMS/[facility] V24, CMS/[facility] V28) BASIC METABOLIC PANEL Routine 10/28/2024 8:06 AM EST Paroxysmal A-fib (CMS/HCC V24, CMS/[facility] V28) from Last 3 Months or Most Recently Relevant to Health Maintenance Results * ECG 12 lead (07/11/2025 9:14 AM EDT) Ventricular Rate ECG 63 BPM GEMUSE Atrial Rate 63 BPM GEMUSE P-R Interval 124 ms GEMUSE QRS Duration 138 ms GEMUSE Q-T Interval 418 ms GEMUSE QTc 427 ms GEMUSE P Wave [place] 80 degrees GEMUSE R [place] 80 degrees GEMUSE T [place] -9 degrees GEMUSE ECG Interpretation Sinus rhythm with occasional Premature ventricular complexes Right bundle branch block Abnormal ECG When compared with ECG of 20-OCT-2024 12:49, Premature ventricular complexes are now Present Right bundle branch block is now Present GEMUSE 07/11/2025 8:48 AM EDT Narrative GEMUSE - 07/11/2025 9:14 AM EDT Normal sinus rhythm 63 bpm. A PVC is noted. us Steve Back MD ECG ORDERABLES Final Result GEMUSE * (ABNORMAL) Basic metabolic panel (10/28/2024 8:06 AM EST) Sodium 127(L) 133 - 145 mmol/L LAB CHEMISTRY METHOD 10/28/2024 9:36 AM [facility] Potassium 4.6 3.5 - 5.5 mmol/L LAB CHEMISTRY METHOD 10/28/2024 9:36 AM [facility] Chloride 94(L) 96 - 110 mmol/L LAB CHEMISTRY METHOD 10/28/2024 9:36 AM [facility] CO2 27 21 - 32 mmol/L LAB CHEMISTRY METHOD 10/28/2024 9:36 AM [facility] Anion Gap 6 3 - 11 LAB CHEMISTRY METHOD 10/28/2024 9:36 AM [facility] Glucose 98 70 - 100 mg/dL LAB CHEMISTRY METHOD 10/28/2024 9:36 AM [facility] BUN 13 5 - 25 mg/dL LAB CHEMISTRY METHOD 10/28/2024 9:36 AM [facility] Creatinine 0.82 0.50 - 1.10 mg/dL LAB CHEMISTRY METHOD 10/28/2024 9:36 AM [facility] eGFR 74 >=60 mL/min/1. 73m2 LAB CHEMISTRY METHOD 10/28/2024 9:36 AM EST [facility] Comment:Calculation based on the Chronic Kidney Disease Epidemiology Collaboration (CKD-EPI) equation refit without adjustment for race. BUN/Creatinine Ratio 15.9 LAB CHEMISTRY METHOD 10/28/2024 9:36 AM EST [facility] Calcium 9.5 8.5 - 10.5 mg/dL LAB CHEMISTRY METHOD 10/28/2024 9:36 AM EST [facility] Blood Venous blood specimen / Unknown Venipuncture / Unknown 10/28/2024 8:06 AM EST 10/28/2024 9:03 AM EST us Kavya Cohn PLASTIC TECHNICIAN LAB BLOOD ORDERABLES Final R esult [facility] [address] [place] [address], from Last 3 Months or Most Recently Relevant to Health Maintenance Insurance MEDICARE Care Teams Maintenance Superintendent Relationship Specialty Start Date End Date Leonidas Betancourt MD [address] [place] [address] Dr Aris Martinez [place] PCP - General Internal Medicine 07/11/25
--- OUTSIDE RECORDS SUMMARY | 2025-07-17 16:47 | XMS_ITS | Patient Health Record ---
Author Organization [facility] Address [address] [place] [address] Care Team Providers Care Express Clerk Name Role Phone Sagar Cannon Unavailable [phone] Reason For Referral No Information Plan Of Treatment No Information
--- OUTSIDE RECORDS SUMMARY | 2025-07-17 16:47 | XMS_ITS | Encounter Summary ---
Author Organization [employer] Address [address] [place] [address] 7 [place] [address] Care Team Providers Care Direct Care Counselor Name Role Phone Unavailable Primary Care Provider Unavailabl e Reason for Visit * Reason Onset Date Comments recement crown 10/17/2024 Encounter Details Date Type Department Care Team (Late Contact Info) Description 10/17/2024 Telephone [facility] [address] [place] [address] Klaudia Finn DMD recement crown Social History [...] Description 09/22/2025 8:00 AM EST Office Visit [facility] [address] [place] [address] Lenore Bishop documented as of this encounter Visit Diagnoses Not on filedocumented in this encounter
== END 2025-07-17 15:29 | disposition home or self-care (01) ==
LOC: HO.HMCH 14:22
PROVIDERS: PCP Internal Medicine; Visit Provider Internal Medicine
DX: I10 Essential (primary) hypertension (principal); E78.00 Pure hypercholesterolemia, unspecified; I48.0 Paroxysmal atrial fibrillation; E03.9 Hypothyroidism, unspecified; S32.010S Wedge compression fracture of first lumbar vertebra, sequela; E55.9 Vitamin D deficiency, unspecified

== ENCOUNTER 2025-07-18 08:05 | Outpatient (REF) | payer MEDICARE, OTHER, SELFPAY ==
[2025-07-18 08:19] LABS: MANUAL DIFF FLAG NO
[2025-07-18 08:50] LABS: Hematocrit 35.6 % (37.0-47.0); Hemoglobin 11.6 g/dl (12.0-16.0); Imm Gran Abs Auto 0.03 X10*3/uL (0.00-0.03); Imm Gran Pct Auto 0.3 % (0.0-0.4); Lymphocytes Absolute Auto 3.5 X10*3/uL (1.2-4.9); Mean Corpuscular HGB Conc 32.6 g/dl (31.0-35.0); Mean Corpuscular Hemoglobin 30.4 pg (27.0-33.0); Mean Corpuscular Volume 93.2 fL (80.0-98.0); NRBC Abs Auto 0.000 X10*3/uL (0.0-0.012); NRBC Pct Auto 0.0 /100WBC (0.0-0.2); Platelet Count 200 X10*3/uL (160-400); Red Blood Count 3.82 X10*6/uL (4.20-5.50); White Blood Count 9.3 X10*3/uL (4.8-10.8)
[2025-07-18 09:30] LABS: Alanine Aminotransferase 18 U/L (0-31); Albumin Level 4.2 g/dL (3.5-5.0); Alkaline Phosphatase 71 U/L (39-117); Anion Gap 11 (12-20); Aspartate Amino Transferase 25 U/L (5-31); Blood Urea Nitrogen 17 mg/dL (9-16); Calcium 9.3 mg/dL (8.4-10.2); Carbon Dioxide 29 mmol/L (22-29); Chloride 103 mmol/L (96-108); Cholesterol 158 mg/dL (<200); Estimated Glomerular Filt Rate > 60; HDL Cholesterol 67 mg/dL (>40); Potassium 4.2 mmol/L (3.3-5.1); Sodium 139 mmol/L (135-145); Total Protein 6.4 g/dL (6.5-8.0); Triglycerides 57 mg/dL (<150)
[2025-07-18 09:35] LABS: Free T4 (Free Thyroxine) 1.44 ng/dL (0.71-1.85); Thyroid Stimulating Hormone 0.05 uIU/mL (0.32-4.0)
== END 2025-07-18 08:06 | disposition home or self-care (01) ==
LOC: HO.LAB 08:05
PROVIDERS: PCP Internal Medicine; Visit Provider Internal Medicine
DX: D64.9 Anemia, unspecified (principal); E03.9 Hypothyroidism, unspecified; E78.00 Pure hypercholesterolemia, unspecified; E55.9 Vitamin D deficiency, unspecified
CPT/HCPCS: 36415; 80053; 80061; 82306; 84439; 84443; 85025

== ENCOUNTER 2025-07-19 10:21 | Outpatient (REF) | payer MEDICARE, SELFPAY ==
[2025-07-19 12:02] LABS: Appearance Urine Clear; Glucose Urine UA Negative (Negative); PH 7.0 (5.0-9.0); Specific Gravity - Urine 1.015 (1.005-1.025)
--- OUTSIDE RECORDS SUMMARY | 2025-07-19 14:23 | XMS_ITS | Encounter Summary ---
Author Organization [employer] Address [address] [place] [address] Care Team Providers Care Coagulating Drying Supervisor Name Role Phone Unavailable Primary Care Provider Unavailabl e Encounter Details Date Type Department Care Team (Latest Contact Info) Description 06/12/2022 Abstract [facility] CONVERSIONS Dental, Provider, DDS Social History [...] Description 09/22/2025 8:00 AM EST Office Visit [facility] [address] [place] [address] Lenore Bishop documented as of this encounter Visit Diagnoses Not on filedocumented in this encounter
--- OUTSIDE RECORDS SUMMARY | 2025-07-19 14:23 | XMS_ITS | Patient Health Record ---
Author Organization [facility] Address [address] [place] [address] Care Team Providers Care Pneumatic Tool Repairer Name Role Phone Sagar Cannon Unavailable [phone] Reason For Referral No Information Plan Of Treatment No Information
--- OUTSIDE RECORDS SUMMARY | 2025-07-19 14:23 | XMS_ITS | Clinical Summary ---
Author Organization [employer] Address [address] 7 [place] [address] Care Team Providers Care Cigar Packing Examiner Name Role Phone Unavailable Primary Care Provider [...] Description 05/16/2025 10:30 AM EDT Office Visit [facility] [address] [place] [address] Case Pineda DDS from Last 3 Months [...] 8:00 AM EST Office Visit [facility] [address] [place], [place] [phone] Lenore Bishop Health Maintenance Due Date Last [...]
--- OUTSIDE RECORDS SUMMARY | 2025-07-19 14:23 | XMS_ITS | Clinical Summary ---
Author Organization [address] [place] [address] Address [address] [place] [address] Phone Care Team Providers Care Buttonhole Tacker Name Role Phone Leonidas Betancourt MD Primary Care Provider + [phone] Allergies No known active allergies Medications acebutoloL [...] Description 07/11/2025 8:40 AM EDT Office Visit [facility] [address] [facility] [address] [place] [address] Steve Back MD Paroxysmal A-fib ([facility] V24, [facility] V28) (Primary Dx); Essential hypertension; Multiple premature ventricular complexes from Last 3 Months Surgical History Surgery Date Site/Laterality Comments HYSTERECTOMY PROCEDURE: HISTORICAL HYSTERECTOMY TONSILLECTOMY PROCEDURE: HISTORICAL TONSILLECTOMY OTHER SURGICAL HISTORY PROCEDURE: HISTORY OTHER; COMMENT: radioactive I2 treatment for hyperthyroidism Medical History Medical History Date Comments Essential hypertension 07/04/2021 DX:Essent ial hypertension Hyperlipidemia 07/04/2021 DX:Hyperlipidemi a Paroxysmal A-fib ([facility] V2 4, [facility] V28) 07/04/2021 DX:Paroxysmal A-fib (HCC) Glaucoma 07/04/2021 [...] Routine 07/11/2025 9:14 AM EDT Paroxysmal A-fib ([facility] V24, CMS/[facility] V28) BASIC METABOLIC PANEL Routine 10/28/2024 8:06 AM EST Paroxysmal A-fib (CMS/HCC V24, CMS/[facility] V28) from Last 3 Months or Most Recently Relevant to Health Maintenance Results * ECG 12 lead (07/11/2025 9:14 AM EDT) Ventricular Rate ECG 63 BPM GEMUSE Atrial Rate 63 BPM GEMUSE P-R Interval 124 ms GEMUSE QRS Duration 138 ms GEMUSE Q-T Interval 418 ms GEMUSE QTc 427 ms GEMUSE P Wave [place] 80 degrees GEMUSE R [place] 80 degrees GEMUSE T [place] -9 degrees GEMUSE ECG Interpretation Sinus rhythm [...] mmol/L LAB CHEMISTRY METHOD 10/28/2024 9:36 AM [facility] Potassium 4.6 3.5 - 5.5 mmol/L LAB CHEMISTRY METHOD 10/28/2024 9:36 AM [facility] Chloride 94(L) 96 - 110 mmol/L LAB CHEMISTRY METHOD 10/28/2024 9:36 AM [facility] CO2 27 21 - 32 mmol/L LAB CHEMISTRY METHOD 10/28/2024 9:36 AM [facility] Anion Gap 6 3 - 11 LAB CHEMISTRY METHOD 10/28/2024 9:36 AM [facility] Glucose 98 70 - 100 mg/dL LAB CHEMISTRY METHOD 10/28/2024 9:36 AM [facility] BUN 13 5 - 25 mg/dL LAB CHEMISTRY METHOD 10/28/2024 9:36 AM [facility] Creatinine 0.82 0.50 - 1.10 mg/dL LAB CHEMISTRY METHOD 10/28/2024 9:36 AM [facility] eGFR 74 >=60 mL/min/1. 73m2 LAB CHEMISTRY METHOD 10/28/2024 9:36 AM EST [facility] Comment:Calculation based on the Chronic Kidney Disease Epidemiology Collaboration (CKD-EPI) equation refit without adjustment for race. BUN/Creatinine Ratio 15.9 LAB CHEMISTRY METHOD 10/28/2024 9:36 AM EST [facility] Calcium 9.5 8.5 - 10.5 mg/dL LAB CHEMISTRY METHOD 10/28/2024 9:36 AM EST [facility] Blood Venous blood specimen / Unknown Venipuncture / Unknown 10/28/2024 8:06 AM EST 10/28/2024 9:03 AM EST us Kavya Cohn BINGO MANAGER LAB BLOOD ORDERABLES Final R esult [facility] [address] [place] [address], from Last 3 Months or Most Recently Relevant to Health Maintenance Insurance MEDICARE Care Teams Buttonhole Tacker Relationship Specialty Start Date End Date Leonidas Betancourt MD [address] [place] [address] [address] [place] PCP - General Internal Medicine 07/11/25
--- OUTSIDE RECORDS SUMMARY | 2025-07-19 14:23 | XMS_ITS | Encounter Summary ---
Author Organization [employer] Address [address] [place] [address] 7 [place] [address] Care Team Providers Care Product Marketing Specialist Name Role Phone Unavailable Primary Care Provider Unavailabl e Reason for Visit * Reason Onset Date Comments recement crown 10/17/2024 Encounter Details Date Type Department Care Team (Late Contact Info) Description 10/17/2024 Telephone C [facility] [address] [place] [address] Klaudia Finn DMD recement crown Social History [...] Description 09/22/2025 8:00 AM EST Office Visit [facility] ADULT [facility] [address] [place] [address] Lenore Bishop documented as of this encounter Visit Diagnoses Not on filedocumented in this encounter
--- OUTSIDE RECORDS SUMMARY | 2025-07-19 14:23 | XMS_ITS | Encounter Summary ---
Author Organization [employer] Address [address] [place] [address] [address] [place] [address] Care Team Providers Care Street Roller Engineer Name Role Phone Unavailable Primary Care Provider Unavailabl e Encounter Details Date Type Department Care Team (Late Contact Info) Description 01/08/2023 Telephone [facility] AD[facility] [address] [place] [address] Jack Hatfield [address] [place], [place] [phone] Social History Tobacco Use Types Packs/Day Years [...] Description 09/22/2025 8:00 AM EST Office Visit [facility] [address] [place] [address] Lenore Bishop documented as of this encounter Visit Diagnoses Not on filedocumented in this encounter
== END 2025-07-19 10:22 | disposition home or self-care (01) ==
LOC: HO.LNP 10:21
PROVIDERS: PCP Internal Medicine; Visit Provider Internal Medicine
DX: R30.0 Dysuria (principal); I10 Essential (primary) hypertension; E78.00 Pure hypercholesterolemia, unspecified; I48.0 Paroxysmal atrial fibrillation; E03.9 Hypothyroidism, unspecified; E55.9 Vitamin D deficiency, unspecified; S32.010S Wedge compression fracture of first lumbar vertebra, sequela; Z79.890 Hormone replacement therapy; Z79.891 Long term (current) use of opiate analgesic; Z79.899 Other long term (current) drug therapy
CPT/HCPCS: 81003; 96127; 99212